=== PATIENT | female | born 1945 | race Caucasian/White ===

== ENCOUNTER → 2016-08-07 | Outpatient (CLI) | payer OTHER, MEDICARE ==
[~2016-08-07] VITALS: Ht 160 cm; Wt 61.7 kg
[~2016-08-07] MED LIST: APAP650 PO; ARAVA20 MG PO; ATENOLOL 50MG T50 M1 PO; BENICAR20 MG PO; CALCIUM 500 +1 EAC5 PO; CENTRUM SILVER1 EAC4 PO; COLACE100 MG PO; ENBREL 25 MG KI25 M1 SUBQ; ENDOCET 7.5-321 EACH PO; FOSAMAX 70 MG T70 MG PO; HYDROCORTISONE PO; K-DUR 20 MEQ T20 MEQ PO; KLOR-CON 1010 MEQ PO; MEDROLDOSEPACK PO; MULTIVITAMINS PO; NORVASC 5 MG TAB5 MG PO; NORVASC10 MG PO; OXYCONTIN10 M1 PO; PERCOCET 10-321 EACH PO; PREDNISONE 5 MG5 M1 PO; ROBAXIN 750 MG750 M1 PO; TRAZODONE HCL50 MG PO; TRIAMTERENE-HC1 EAC1 PO; VISTARIL 25 MG25 M1 PO; VITAMIN D31000 UNI2 PO; ZOCOR 20 MG TAB20 M1 PO
--- NOTE | ~2016-08-07 | HPC ---
[facility] [place] [address] PAIN MANAGEMENT CONSULTATION Name: ANN CHEN Room #: REG [facility] Tamiko#: [id number] Admission: 08/07/16 Attend Phys: Ming Arnett MD Discharge: Date of : 41 Report #: [id number] THIS REPORT FOR: //name// CC: GARY Arnett DATE OF SERVICE: 08/07/2016 DATE OF SERVICE: 08/07/2016 Follow up visit for lumbar radiculopathy, bilateral status post lumbar fusion with decompression. This is a followup visit for the patient, who is here today with her . She has persistent and recurring low back pain radiating mostly into the right buttock and thigh. She has had improvement following epidural injections most recently performed in May. She reports 60% improvement. Duration of response; however, was limited to about 2 months or so when the pain began to return. She is here today with pain at level of 8 or 9, it is worse with weightbearing. Pain once again across the low back and into the legs. She describes it as an aching ____ sensation is exacerbated by walking. It is typically worse in the morning. Medications for pain include acetaminophen and trazodone. She is reluctant to take stronger medications due to the side effects. PHYSICAL EXAMINATION: She is a ernesto 70-year-old pleasant, alert and oriented. Blood pressure 150/70, heart rate 56. BMI is 24.1. She moves from a sitting to standing position, ambulates independently without a walking device. She has pain and tenderness across her low back. She has a scar from previous surgery. She has pain with forward flexion and extension and straight leg raising reproduces pain, particularly in the right buttock and thigh. This involves the L3-L4 distribution. IMPRESSION: Low back pain, post-laminectomy syndrome with radiculopathy. Pain is worse on the right than the left. PLAN: Epidural steroid injection today above the level of her fusion. We have also discussed other options for the future consideration including the possibility of a spinal cord stimulator. We had a long discussion about that at last visit. We reviewed some of the issues today and further questions were answered. She is not quite ready for that therapy, but knows that this is an option going forward in the future. PROCEDURE: She was taken to fluoroscopic suite, placed prone, skin prepped with [address] [address] PAIN MANAGEMENT CONSULTATION Name: ANN CHEN Room #: REG [facility] Tamiko#: [id number] Admission: 08/07/16 Attend Phys: Ming Arnett MD Discharge: Date of : 43 Report #: [id number] ChloraPrep. Skin was anesthetized over the L3-L4 interspace just above her fusion. Skin was anesthetized and a #20-gauge Tuohy epidural needle advanced in the epidural space in the midline. There was no blood nor CSF aspirated. 1 mL of Omnipaque demonstrated an excellent spread of dye into the epidural space followed by 3 mL of 0.5% lidocaine mixed with 80 mg of triamcinolone. She tolerated the procedure well and was walking to recovery room at time of dictation and is in good condition. Followup visit is planned on an as needed basis. We will see here for injections intermittently. We did review the fact that she is on hydrocodone as a replacement for adrenal insufficiency. Long-term consequences of steroid use were reviewed today. By: 1133 1400 Ming Arnett MD /nt
[2016-08-07 10:17] VITALS: BP 155/66
== END ==
LOC: PAIN 06-11 14:33
DX: M54.16 Radiculopathy, lumbar region (principal); M96.1 Postlaminectomy syndrome, not elsewhere classified; I10 Essential (primary) hypertension; F10.21 Alcohol dependence, in remission; D64.9 Anemia, unspecified

== ENCOUNTER → 2016-09-18 | Outpatient (CLI) | payer OTHER, MEDICARE ==
[~2016-09-18] VITALS: Ht 160 cm; Wt 61.6 kg
[~2016-09-18] MED LIST changes: +NORCO 5-325 TA1 EACH PO; +PREDNISONE 20 M20 MG PO
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
[2016-09-18 10:26] VITALS: BP 161/83
== END | disposition home or self-care (01) ==
LOC: PAIN 07:03
DX: M54.16 Radiculopathy, lumbar region (principal); M96.1 Postlaminectomy syndrome, not elsewhere classified; G89.29 Other chronic pain

== ENCOUNTER → 2016-11-03 | Outpatient (CLI) | payer OTHER, MEDICARE ==
[~2016-11-03] VITALS: Ht 160 cm; Wt 62.4 kg
[~2016-11-03] MED LIST changes: +ALIGN4 MG PO; +GABAPENTIN100 MG PO; +OXYCODONE HCL 55 MG PO; +OXYCODONE HCL5 M1 PO; +OXYCONTIN15 MG PO; +PERCOCET PO; +PROLIA60 MG/1 ML SQ; +ZANTAC 150MG T150 MG PO
--- NOTE | ~2016-11-03 | HPC ---
[address] [address] PAIN MANAGEMENT CONSULTATION Name: ANN CHEN Room #: REG [facility] Morrison#: [id number] Admission: 11/03/16 Attend Phys: Ming Arnett MD Discharge: Date of : 43 Report #: [id number] THIS REPORT FOR: //name// CC: GARY Arnett DATE OF SERVICE: 11/03/2016 Followup visit for intractable low back pain radiating into the left buttock and left leg. Note this dictation replaces the earlier dictation performed on 11/03/2016 which was distorted on the Dictaphone. The patient returns to pain clinic today with her to discuss her low back pain and radiating radicular symptoms. Her pain is described as a chronic, sharp, shooting, aching tenderness 4/10, it is worse with standing and walking, getting up and down from a chair. The pain radiates throughout the left leg in a radicular fashion and she has had some intermittent improvement with epidural injections with varying degrees of duration. The patient has large disk fragment lying posterior to the right vertebral body. There are advanced degenerative changes at L3-L4 and the L3 fragment is an upward herniation of L3-L4 off the disk rather than the downward herniation of the L2-L3 disk. There is a large ridge there across the anterior canal. She has an L5-S1 disk prosthesis. There is evidence for loosening of the L5 screws. There is a grade 1 anterolisthesis of L5 and S1, which is unchanged. Her surgery was performed initially in March of 2013 followed by repair of hardware installed on March 15, very shortly thereafter in April of 2013. The patient had epidural injections in 2016 and 2015. A series of injections were performed over 6 months between March and August and fourth injection performed roughly 7 months after the first injection. While helpful, these provided only short duration of relief. MEDICATIONS: Arava for rheumatoid arthritis, osteopenia, Fosamax, atenolol, amlodipine, hydrocortisone, simvastatin, trazodone, Centrum Silver, vitamin D. ALLERGIES: The patient is allergic to CIMZIA and CODEINE. PHYSICAL EXAMINATION: She is a very ernesto 71-year-old pleasant, alert and oriented. Blood pressure 167/72, heart rate 65, respirations 16. BMI is 24.5. She moves from sitting to standing position, ambulates with mild antalgic features. She has some weakness noted in the lower extremities. Straight leg raising on the left follows an L3 distribution which is consistent with the findings that we see on her MRI with the disk fragment lying posterior [place] [address] PAIN MANAGEMENT CONSULTATION Name: ANN CHEN Room #: REG [facility]#: [id number] Admission: 11/03/16 Attend Phys: Ming Arnett MD Discharge: Date of : 43 Report #: [id number] vertebral body. Sensation is intact. IMPRESSION: 1. Chronic intractable low back pain with radiculopathy. 2. Post-laminectomy syndrome with fusion. 3. Rheumatoid arthritis. 4. Adrenal insufficiency. 5. Hypertension. 6. Osteopenia. RECOMMENDATIONS: While surgery and repeat surgery is certainly a potential option, we also discussed spinal cord stimulation. Her came to the clinic today armed with 17 questions. I answered all of them. with possibilities for success, risks, failures, management and other practical aspects of spinal cord stimulation therapy. They understand that a trial is indicated and that Medicare will require preauthorizing evaluation by psychologist. We have given numbers for them to call to arrange for this with Dr. Zavaleta. Plan is to proceed with spinal cord stimulation trial after we have accomplished all of the preauthorizing paperwork and we will see the patient back towards the end of October for the procedure. By: [id number] Ming Arnett MD /nt
[2016-11-03 09:36] VITALS: BP 167/72
== END | disposition home or self-care (01) ==
LOC: PAIN 06:06
DX: M54.16 Radiculopathy, lumbar region (principal); G89.29 Other chronic pain; M06.9 Rheumatoid arthritis, unspecified; M96.1 Postlaminectomy syndrome, not elsewhere classified; E27.40 Unspecified adrenocortical insufficiency; I10 Essential (primary) hypertension; M85.80 Other specified disorders of bone density and structure, unspecified site; Z98.890 Other specified postprocedural states; Z88.8 Allergy status to other drugs, medicaments and biological substances; Z79.899 Other long term (current) drug therapy

== ENCOUNTER → 2016-11-12 | Outpatient (CLI) | payer OTHER, MEDICARE ==
[~2016-11-12] VITALS: Ht 160 cm; Wt 63.4 kg
--- NOTE | ~2016-11-12 | HPC ---
[facility] [place] [address] PAIN MANAGEMENT CONSULTATION Name: ANN CHEN Room #: REG [facility] Morrison#: [id number] Admission: 11/12/16 Attend Phys: Ming Arnett MD Discharge: Date of : 41 Report #: [id number] THIS REPORT FOR: //name// CC: Dr. Tad Arnett DATE OF SERVICE: 11/12/2016 DATE OF REGISTRATION: 11/12/2016 Followup visit for chronic intractable pain with severe low back pain, herniated nucleus pulposus, and radiculopathy. The patient returns to pain clinic today with her . They were just in the office for an extended visit 1 week ago. We discussed spinal cord stimulation, surgical options and treatments with medication. They decided they would like for our clinic to manage her medication under terms of an opioid agreement. She is here today to establish that. She has currently been using oxycodone 5-10 mg twice a day, more recently is 10 mg taken morning and afternoon. She generally does not eat in the evening after 8 when she goes to bed, but wakes up in the morning with substantial degree of pain. She is not on any coanalgesics including medications for neuropathic pain and we discussed the rationale for them at this time. CURRENT MEDICATIONS: Arava, Fosamax, atenolol, amlodipine, hydrocortisone, simvastatin, trazodone, vitamins. ALLERGIES: CODEINE, CIMZIA. PHYSICAL EXAMINATION: The patient is pleasant, a little frustrated by her ongoing pain. Blood pressure 137/61, heart rate 60, respirations 16. She has ongoing pain across the low back with radiation into the anterolateral thigh consistent with an L3 radiculopathy on the left. IMPRESSION: 1. Low back pain with large disk fragment posterior to the right L3 vertebral body with degenerative changes. radiculopathy. 2. Management of high risk medications, now under terms of an opioid agreement. 3. Rheumatoid arthritis. PLAN: 1. I have initiated long-acting opioid with OxyContin 15 mg b.i.d. and I renewed her prescription for oxycodone 5 one to two tablets q. 6 hours or up to [address] [address] PAIN MANAGEMENT CONSULTATION Name: ANN CHEN Room #: REG [facility] Morrison#: [id number] Admission: 11/12/16 Attend Phys: Ming Arnett MD Discharge: Date of : 41 Report #: [id number] 4 tablets a day if she takes 2 at a time morning and evening, 120 tablets were provided. 2. Begin gabapentin with a titrating dose of 100 mg at bedtime towards 300 mg t.i.d. Side effects, benefits and risks were reviewed. Written titration instructions provided. 3. The patient will follow up with Dr. Mishra for an appointment to discuss surgical options. 4. The patient is pursuing spinal cord stimulation therapy as well and has appointment with Dr. Fani Zavaleta to determine her to complete that part of the Medicare requirement. 5. Follow up in the pain clinic in 2 weeks. By: [id number] Ming Arnett MD /nt
[2016-11-12 12:41] VITALS: BP 137/61
== END ==
LOC: PAIN 06:49
DX: M54.16 Radiculopathy, lumbar region (principal); M06.9 Rheumatoid arthritis, unspecified; I10 Essential (primary) hypertension; F10.21 Alcohol dependence, in remission

== ENCOUNTER → 2016-11-24 | Outpatient (CLI) | payer OTHER, MEDICARE ==
[~2016-11-24] VITALS: Ht 160 cm; Wt 64.4 kg
[~2016-11-24] MED LIST changes: +HYDROCHLOROTHIA25 M2 PO; +NEURONTIN300 MG PO
--- NOTE | ~2016-11-24 | HPC ---
[facility] [address] [place] [address] PAIN MANAGEMENT CONSULTATION Name: ANN CHEN Room #: REG [facility] Morrison#: [id number] Admission: 11/24/16 Attend Phys: Ming Arnett MD Discharge: Date of : 41 Report #: [id number] THIS REPORT FOR: //name// CC: GARY Arnett DATE OF SERVICE: 11/24/2016 Followup visit for chronic low back pain with radiculopathy. The patient returns to pain clinic today with her with another long visit to ask questions about spinal cord stimulation and also to give me a very, very thorough feedback on her response to gabapentin increasing dose, OxyContin 50 mg b.i.d. and breakthrough. She has done well. Her pain score overall is about 40% better and she denies any significant side effects. She sleeps well at night. She has figured out a way of getting up first thing in the morning and taking her medication before she gets out of bed, going back to bed and then getting up for the day about an hour later. This has helped a lot. She saw Dr. Mishra at who dissuaded her from back surgery even though she has a large disk fragment. She is considering, however, going forward with her spinal cord stimulator trial. At several visits, we have talked about Nevro and the high-frequency benefits. Our group has now given more consideration to [employer] for a number of reasons. There have been lots of discussions amongst our compatriots about which device is best. I think that still remains to be seen, but we are choosing [employer] at this time because of some recent evidence presented at a national conference. It suggests that stimulation without paresthesia can be achieved at somewhere between 700 to 1200 Hz capable of the [employer] numerical control programmer. There is some programming advantage with [employer] that is not seen in other devices. There newer batteries and leads are also MRI safe, so that would be an additional advantage. The need to charge the device less frequently is also a convenience for patients should they do well. We plan to go forward with the [employer] trial in the near future. We will have , our process controller, find a time on the schedule for the trial to take place sometime in the next week or two. By: 1706 0000 Ming Arnett MD /nt
[2016-11-24 15:05] VITALS: BP 155/67
== END | disposition home or self-care (01) ==
LOC: PAIN 06:58
DX: M54.16 Radiculopathy, lumbar region (principal); G89.29 Other chronic pain; F11.20 Opioid dependence, uncomplicated; Z88.8 Allergy status to other drugs, medicaments and biological substances; Z98.890 Other specified postprocedural states

== ENCOUNTER → 2017-01-01 | Outpatient (CLI) | payer OTHER, MEDICARE ==
[~2017-01-01] VITALS: Ht 160 cm; Wt 63.0 kg
--- NOTE | ~2017-01-01 | HPC ---
[facility] [place] [address] PAIN MANAGEMENT CONSULTATION Name: ANN CHEN Room #: REG [facility] Morrison#: [id number] Admission: 01/01/17 Attend Phys: Ming Arnett MD Discharge: Date of : 43 Report #: [id number] THIS REPORT FOR: //name// CC: GARY Arnett DATE OF SERVICE: 01/01/2017 Followup visit for chronic low back pain with radiculopathy. After multiple discussions, the patient is here today for her spinal cord stimulation trial. We have completed all the preauthorizations. She has had her psychological evaluation, which was acceptable. She continues to report pain levels in the range of 7 to 8, radiating into the left leg. We have discussed the procedure once again today, risks of the procedure and benefits and she is prepared to proceed. IMPRESSION: Low back pain with radiculopathy, left L4-L5. PROCEDURE: Implant, dual [employer] Infinion 16 trial leads under fluoroscopic guidance. After an IV was placed and the patient was given 2 g of intravenous Ancef, she was taken to the fluoroscopic suite, placed prone. Skin was prepped widely with ChloraPrep. Sterile drapes were placed. We began on the left. The skin was anesthetized below the T12-L1 interspace. A 14-gauge Tuohy-type epidural needle was advanced into the epidural space, midline under first attempt. The first Infinion lead was advanced with the tip resting at the superior edge of T6 covering T6, T7 and T8. AP and lateral views confirmed good location. There were no paresthesias during the lead placement. The skin was then anesthetized to the right of midline and the second needle was advanced into the same interspace without difficulty. Second lead was advanced nicely into the epidural space, again covering the same location. However, this lead was slightly to the right of first. Each lead was separately trialed by access services representative, Anastasia Hdz of the [email or web address]. We agreed the leads appeared to be in good location for coverage of low back and the left leg. The needles were then carefully removed as well as the stylet. Skin was prepped with Mastisol and Steri-Strips were applied to secure the leads into place. Sterile dressing was applied. The patient was then taken from the procedure suite to the recovery area. She tolerated the procedure very well. There were no complications. Programming was performed with [place] [address] PAIN MANAGEMENT CONSULTATION Name: ANN CHEN Room #: REG [facility] Tamiko#: [id number] Admission: 01/01/17 Attend Phys: Ming Arnett MD Discharge: Date of : 43 Report #: [id number] by Ms. Hdz. We will follow by phone over the course of the trial and see her back in 1 week. By: 01 2047 MD benedict Arndt
[2017-01-01 07:49] VITALS: BP 127/63
== END | disposition home or self-care (01) ==
LOC: PAIN 06:53
DX: M54.16 Radiculopathy, lumbar region (principal); G89.29 Other chronic pain; D64.9 Anemia, unspecified; Z79.899 Other long term (current) drug therapy; Z88.8 Allergy status to other drugs, medicaments and biological substances; Z98.890 Other specified postprocedural states

== ENCOUNTER → 2017-01-08 | Outpatient (CLI) | payer OTHER, MEDICARE ==
[~2017-01-08] VITALS: Ht 160 cm; Wt 64.4 kg
[~2017-01-08] MED LIST changes: +ROXICODONE5 M2 PO
--- NOTE | ~2017-01-08 | HPC ---
[facility] [address] [address] PAIN MANAGEMENT CONSULTATION Name: ANN CHEN Room #: REG [facility] Morrison#: [id number] Admission: 01/08/17 Attend Phys: Ming Arnett MD Discharge: Date of : 41 Report #: [id number] THIS REPORT FOR: //name// CC: GARY Arnett [place] Dr. Jimenes DATE OF SERVICE: 01/08/2017 DATE OF REGISTRATION: 01/08/2017 Followup visit for chronic back pain, post-laminectomy and fusion. The patient returns to pain clinic today with her . She provided me with a 10 page incredibly detailed report regarding her response to various programs, stimulation levels activity and pain scores during her spinal cord stimulation trial. I did review most of this while they were in the office and later all of it. It is their assessment that stimulation trial was successful at least to the stage of going forward with permanent implant. She did have some improvement, but did not like the paresthesia. When the paresthesia was diminished by increasing the frequency up to 700 ____ 1200, she felt that it was insufficient. They asked question about may be trialing another device, but I do not think that that is linder, I think that the device trials are similar and although there are some variations between Nevro, [employer], [employer], I do not think that the differences are enough to warrant another trial, I think she has failed spinal cord stimulation. We discussed briefly intrathecal therapies. This is something that they did not want at this time, may consider in the future. We discussed medication management and that seemed to be the route to go today. She is currently on OxyContin, which provides relief and few side effects. I have recommended that we continue that along with gabapentin and will follow up in 2 months. PHYSICAL EXAMINATION: Pleasant, alert and oriented, shows a little bit of hesitancy in her speech. She moves easily from sitting to standing position, walks with antalgic features after she has been up for a bit and scores her pain in ever increasing number. Pain radiates in the left leg. She has mild scoliosis noted. IMPRESSION: 1. Chronic low back pain with radiculopathy, left L4-L5. Post-laminectomy syndrome. [address] [address] PAIN MANAGEMENT CONSULTATION Name: ANN CHEN Room #: REG [facility] Tamiko#: [id number] Admission: 01/08/17 Attend Phys: Ming Arnett MD Discharge: Date of : 41 Report #: [id number] 2. Failed [employer] spinal cord stimulation trial. We will not move forward with the implant based upon this trial. By: 1501 1521 Ming Arnett MD /nt
[2017-01-08 10:49] VITALS: BP 137/69
== END ==
LOC: PAIN 06:51
DX: M54.16 Radiculopathy, lumbar region (principal)

== ENCOUNTER → 2017-03-09 | Outpatient (CLI) | payer OTHER, MEDICARE ==
[~2017-03-09] VITALS: Ht 160 cm; Wt 63.5 kg
--- NOTE | ~2017-03-09 | HPC ---
[facility] [place] [address] PAIN MANAGEMENT CONSULTATION Name: TESSIE CHENEldon Viveros Room #: REG KYAW Morrison#: [id number] Admission: 03/09/17 Attend Phys: Ming Arnett MD Discharge: Date of : 41 Report #: [id number] THIS REPORT FOR: //name// CC: GARY Arnett DATE OF SERVICE: 03/09/2017 Thirty five-minute followup visit for pain counseling and medication management. The patient is in the clinic today with her . He has provided me again with an extensive typed assessment of patient's response to medication over the course of the last several weeks. She is currently on an opioid baseline medication with breakthrough and is also using co-analgesic gabapentin 300 mg t.i.d. Her daily dose of OxyContin is currently 15 mg b.i.d. and oxycodone is 5-10 mg for breakthrough pain, also being used in anticipation of events. Mr. Chen's very thorough assessment describes good days and bad days. She had one excellent day when she was able to walk around [place], shopping for an extended period. She cannot really identify why that was such a good day. She did nothing out of the ordinary. She took her medication in anticipation of her trip. Other days the pain is so severe when ambulating that she has to sit down. Pain has remained fairly consistent in its location with lumbar radiculopathy, extending into the left L4-L5 distribution of the leg. She is tearful today in discussing her pain. Her asked me about behavioral therapies and we also discussed spinal cord stimulation again. The trial was only so-so. It was my opinion that if we decided to go forward with spinal cord stimulation given the fact that there are many additional programs that were not trialed during her 5-day trial that her likelihood of success would be in the range of 30%. This is my estimate. For now the use of spinal cord stimulation remains stable. There were some questions again about the possibility of a different stimulator, either [employer], [employer] or [employer]. She had a [employer] trial. We talked about methadone as a long-acting opioid. We have had good success in treating many of our patients who have neuropathic pain with methadone. It can be used safely I believe as long as she uses it carefully and under strict instructions from a physician with good patient education. We will leave that as an option in the future. We have talked some about current accepted norms for the use of opioid therapy. An increase in her breakthrough medication I think is a reasonable titration at this point in time and we will be pushing up against the CDC guideline of 90 morphine milligram equivalents. In addition to the additional oxycodone for breakthrough, we can also consider increasing her gabapentin and I have recommended that she gradually increase from 300 three times daily to [address] [address] PAIN MANAGEMENT CONSULTATION Name: ANN CHEN Room #: REG KYAW Morrison#: [id number] Admission: 03/09/17 Attend Phys: Ming Arnett MD Discharge: Date of : 41 Report #: [id number] times daily. Higher doses of course may be effective without substantial side effects for patients with neuropathic pain. PHYSICAL EXAMINATION: GENERAL: Her affect is depressed and tearful. She does not appear overmedicated at all. VITAL SIGNS: Her blood pressure is 133/69, her heart rate is 59, respirations are 16. BMI is 24.8. MUSCULOSKELETAL: She continues to have pain in her left low back, buttock and left leg with movement and positive straight leg raising. IMPRESSION: 1. Persistent chronic low back pain with radiculopathy, post-laminectomy syndrome. 2. Situational depression related to chronic pain. 3. Management of high risk medication. RECOMMENDATION: Medications were provided for OxyContin 15 mg b.i.d.; oxycodone 5-15 mg breakthrough q.4 hours, not to exceed 6 tablets a day, 180 tablets given; gabapentin 180 tablets given of the 300 mg strength to take up to 2 tablets 3 times daily as directed. I also provided them with information on positive attitudes for chronic intractable pain and cognitive behavioral therapies. 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 We talked about the importance of positive attitudes and we will continue to follow these themes. We talked a little bit about programs providing psychological pain management including the [facility]. She may be a candidate for that, but [facility] often time focuses on taking patients off of opioid and they need to be prepared for that focus. I would be in favor of that of course if it were helpful in allowing her to do so. We will discuss further at next visit. By: [id number] Ming Arnett MD /nt
[2017-03-09 10:12] VITALS: BP 133/69
== END | disposition home or self-care (01) ==
LOC: PAIN 06:57
DX: M96.1 Postlaminectomy syndrome, not elsewhere classified (principal); G89.29 Other chronic pain

== ENCOUNTER → 2017-05-29 | Outpatient (CLI) | payer OTHER, MEDICARE ==
[~2017-05-29] VITALS: Ht 160 cm; Wt 62.6 kg
[~2017-05-29] MED LIST changes: +ARAVA10 MG PO; +ATENOLOL 50MG T50 MG PO; +KEFLEX500 M1 PO; +LEFLUNOMIDE 1010 MG PO; +MIRALAX17 GM PO; +NEURONTIN 300300 M1 PO; +NEURONTIN600 MG PO; +RELISTOR150 MG PO
--- NOTE | ~2017-05-29 | HPC ---
[facility] [place] [address] [place] [address] PAIN MANAGEMENT CONSULTATION Name: ANN CHEN Room #: REG KYAW Morrison#: [id number] Admission: 05/29/17 Attend Phys: Wilber Vazquez MD Discharge: Date of : 43 Report #: [id number] THIS REPORT FOR: //name// CC: GARY Vazquez DATE OF SERVICE: 05/29/2017 FOLLOWUP HISTORY OF PRESENT ILLNESS: The patient is a 72-year-old female who has been seen and followed in the pain clinic by Dr. Ming Arnett. She has history of lumbar radicular pain and post-laminectomy syndrome. She has returned to the pain clinic today for evaluation. She has continued to have pain, which radiates down into her left buttocks down into the left leg and is here for medication evaluation. She rates her pain as a 3/10 at this juncture. Pain worsens with walking, standing and notes some problems when she gets up from a sitting position. She is experiencing some shooting, sharp, aching pain in her leg. She finds that opioid medications helped to alleviate her chronic pain. She feels that the OxyContin 15 mg b.i.d. and oxycodone 5 mg continues to be helpful. She has discussed the opioid changes as a result of the opioid crisis. States that she has taken her medications as prescribed. She is keeping them in a controlled environment. She has had no problems with them. She is aware of the possibility of dependence and tolerance. She finds that these medications enable her to continue to be more active. ALLERGIES: CODEINE AND CIMZIA. CURRENT MEDICATIONS: MiraLax 17 grams, atenolol 50 mg total of 75 mg daily, gabapentin 100 mg tablets t.i.d., OxyContin 15 mg b.i.d., oxycodone 5 mg tablets every 6 hours p.r.n., one to three tablets per day for breakthrough pain, Arava 20 mg, Prolia subcutaneous monthly, calcium, multivitamin, Centrum, trazodone 50 mg at bedtime, hydrocodone, hydrocortisone 10 mg b.i.d., Zocor 20 mg. PHYSICAL EXAMINATION: Unremarkable. The patient's speech and insight appear normal. VITAL SIGNS: Blood pressure 171/60, pulse 60, respiratory rate 16, room air saturation 97. Height 5 foot 3, weight 138 pounds, BMI is 24. The patient has not fallen in the last 3 months. Walks with a mild antalgic gait. HEART: Regular rate. ABDOMEN: Nontender, complains of pain and discomfort in the lower portion of her back with pain radiating down to the left buttocks involving the left leg with sharp, shooting, aching pain and tenderness with certain activities. Pain exacerbated by walking and standing. IMPRESSION: [facility] [address] [place] [address] PAIN MANAGEMENT CONSULTATION Name: ANN CHEN Room #: REG KYAW Morrison#: [id number] Admission: 05/29/17 Attend Phys: Wilber Vazquez MD Discharge: Date of : 43 Report #: [id number] 1. Low back pain with radiculopathy, post-laminectomy syndrome with pain in the left lower back and buttocks area. 2. Manage of high risk medications. 3. Situational depression. 4. Hypercholesterolemia. RECOMMENDATIONS: We discussed treatment options with the patient. At this juncture, she feels that her medications are working reasonably well. She is able to engage in activity she would not be able to without their use. She is keeping her medications in a guarded location. She does not feel that she is having any signs of dependence or tolerance at this juncture. We will continue with her current medical regimen. She will follow up with Dr. Arnett in the near future. We would like to thank you for letting us participate in her care. A prescription for gabapentin 100 mg t.i.d. total of 180, OxyContin 15 mg 1 p.o. b.i.d., total of 60 have been written. The patient will follow up and call us if she has any concerns. <ELECTRONICALLY SIGNED> By: Wilber Vazquez MD 06/10/17 0837 0821 1211 Wilber Vazquez MD /ANKIT
[2017-05-29 10:49] VITALS: BP 171/60
== END ==
LOC: PAIN 07:11
DX: M54.16 Radiculopathy, lumbar region (principal); M96.1 Postlaminectomy syndrome, not elsewhere classified; F32.9 Major depressive disorder, single episode, unspecified; E78.00 Pure hypercholesterolemia, unspecified; Z79.899 Other long term (current) drug therapy

== ENCOUNTER → 2017-07-02 | Outpatient (CLI) | payer OTHER, MEDICARE ==
[~2017-07-02] VITALS: Ht 238.8 cm; Wt 62.7 kg
--- NOTE | ~2017-07-02 | HPC ---
[facility] [place] [address] PAIN MANAGEMENT CONSULTATION Name: ANN CHEN Room #: REG KYAW Morrison#: [id number] Admission: 07/02/17 Attend Phys: Ming Arnett MD Discharge: Date of : 41 Report #: [id number] THIS REPORT FOR: //name// CC: GARY Arnett DATE OF SERVICE: 07/02/2017 Followup visit for chronic low back pain with radiculopathy. This is a 20-minute followup visit for the patient to discuss treatment of her ongoing low back pain with radicular symptoms. I am pleased to report that she has made good progress with a simple exercise program. By simply walking every day she has been able to increase her endurance, her standing ability and her weightbearing. She does walking with her , often times doing it outdoors, which I have recommended. [facility]. Overall, she is pleased with this and feels that her pain has moderated some as well. She is seeing improvement therefore not only in pain control, but in function. She would like a physical therapy appointment to further extend her exercise and I am agreed to do so and that was written for today, 2 visits per week for 4 weeks and we will reassess after that. We discussed medication management at some length. I went in great detail over her oxycodone use and Neurontin titration. She is now roughly at 1500 mg of Neurontin per day taken in divided dose. OxyContin is provided for baseline pain control with an opioid 15 mg b.i.d. and she uses oxycodone 5/325 for breakthrough, no more than 5 tablets per day. She is on a written opioid agreement. She has completed an ORT and is at low risk. Functional assessment tool is being followed to see for improvements and she has goals of continuing to see better pain control with few side effects, improving her day-to-day activities of living including walking, weightbearing activities. PQRS review shows no history of osteoarthritis other than the lumbar spondylosis. Her BMI is 21. Vital signs are blood pressure 138/70, heart rate 59, respirations 16, O2 sat 97%. At worst her pain intensity is a 6/10, average pain score is 5/10, tolerable for her. She is not a fall risk. She does not use a walker. She has history of hypertension, which has been under treatment. Opioids have been discussed above and she is on an opioid written agreement. We have discussed CDC guidelines again today. I have calculated her morphine milligram equivalency. Her current MME is 60-70 depending on use of breakthrough medicine. The only side effects that she has with medications that are poorly managed are gabapentin related headache, dizziness and tremor. We have discussed a trial of Gralise and samples were provided. She will call our office to let us know if this is effective. [address] [address] PAIN MANAGEMENT CONSULTATION Name: ANN CHEN Room #: REG KYAW Morrison#: [id number] Admission: 07/02/17 Attend Phys: Ming Arnett MD Discharge: Date of : 43 Report #: [id number] PHYSICAL EXAMINATION: She is pleasant, alert and oriented, without signs of overmedication. She has tenderness across her low back. She stands and walks with a good stable gait. She has some radicular features in the left leg with straight leg raising. IMPRESSION: 1. Chronic low back pain, post-laminectomy syndrome with radiculopathy, left lower extremity. 2. Management of high risk medications. 3. Situational depression, improved. 4. Hypertension. PLAN: Medications renewed for 3 months including OxyContin 15 mg b.i.d., oxycodone 5 mg no more than 5 tablets a day for breakthrough pain and Gralise samples provided. Neurontin is provided at a dose of 300-500 mg t.i.d. as tolerated and a followup visit scheduled for 3 months. Prescription written for physical therapy. <ELECTRONICALLY SIGNED> By: Ming Arnett MD 07/29/17 1640 1218 194 Ming Arnett MD /nt
[2017-07-02 09:59] VITALS: BP 138/70
== END ==
LOC: PAIN 06:44
DX: M54.16 Radiculopathy, lumbar region (principal); M96.1 Postlaminectomy syndrome, not elsewhere classified; I10 Essential (primary) hypertension; F32.9 Major depressive disorder, single episode, unspecified; Z79.899 Other long term (current) drug therapy

== ENCOUNTER → 2017-08-13 | Outpatient (CLI) | payer OTHER, MEDICARE ==
[~2017-08-13] VITALS: Ht 160 cm; Wt 62.5 kg
[~2017-08-13] MED LIST changes: -KEFLEX500 M1 PO; -RELISTOR150 MG PO
--- NOTE | ~2017-08-13 | HPC ---
[facility] [address] [place] [address] PAIN MANAGEMENT CONSULTATION Name: ANN CHEN Room #: REG KYAW Morrison#: [id number] Admission: 08/13/17 Attend Phys: Ming Arnett MD Discharge: Date of : 43 Report #: [id number] THIS REPORT FOR: //name// CC: GARY Arnett DATE OF SERVICE: 08/13/2017 Followup visit for chronic low back pain with radiculopathy. I spent another 20-minute consultation with patient and her . Many questions about gabapentin. We were unable to get authorization for Gralise at an affordable hernandez. Unfortunately, it worked very well for her. She continues on oxycodone in combination with her gabapentin and is tolerating this combination well. She has minimal side effects and she and her have been able to resume some activities, which is encouraging. She has been walking a bit more and tolerating her pain more effectively down to an intensity of 5/10. Medications were reviewed and reconciled. She currently is on 1800 mg of gabapentin and we have agreed today that we will go up on that dose. Her is quite precise and has asked to use 100 and 300 mg capsules in order to adjust her dose to the most favorable interval and daily dose. We have agreed on 25/100 as a target. I have given her 300 and 100 mg capsules amounting to roughly that dose per month and he will combine them to provide roughly 500 mg 5 times daily or 400 daily. He is looking to find the best possible dose with this combination. She has no significant side effects from her medication and oxycodone is well tolerated without much side effect other than some constipation. We reviewed treatments for opioid-induced constipation. Her PQRS review once again shows no history of osteoarthritis, just the back problems. Her BMI is 24.4. Her pain intensity is 5/10. Her blood pressure 152/67, heart rate is 56, O2 sat 96%. She is not a fall risk, does not use a walker or a cane. She is on no blood thinner, but does have a history of hypertension, which has been under treatment in the past. She has signed an opioid agreement. We have rereviewed her dose, which is currently at roughly 85 morphine milligram equivalents per day. She uses oxycodone 5 mg 5 times a day for a dose of 25 in addition to OxyContin 15 mg b.i.d. for an additional 30. That correlates to 55 mg of oxycodone per day. I had previously calculated her dose of 60 to 70. It is a bit higher than that. She shows no evidence of addiction, although is quite dependent on the [address] [address] PAIN MANAGEMENT CONSULTATION Name: ANN CHEN Room #: REG KYAW Morrison#: [id number] Admission: 08/13/17 Attend Phys: Ming Arnett MD Discharge: Date of : 43 Report #: [id number] medication for pain control. IMPRESSION: 1. Chronic back pain with radiculopathy, left lower extremity. 2. Management of high risk medication. 3. Situational depression, improved. 4. Hypertension. PLAN: Medications renewed for 3-month interval and I plan to see her back in the Pain Clinic at that time. <ELECTRONICALLY SIGNED> By: Ming Arnett MD 09/07/17 1408 1315 0058 Ming Arnett MD /nt
[2017-08-13 11:30] VITALS: BP 152/67
== END ==
LOC: PAIN 07:01
DX: G89.29 Other chronic pain (principal); M54.5 Low back pain; M54.16 Radiculopathy, lumbar region; I10 Essential (primary) hypertension; M79.662 Pain in left lower leg; F43.21 Adjustment disorder with depressed mood; Z79.899 Other long term (current) drug therapy

== ENCOUNTER → 2017-11-02 | Outpatient (CLI) | payer OTHER, MEDICARE ==
[~2017-11-02] VITALS: Ht 160 cm; Wt 61.0 kg
--- NOTE | ~2017-11-02 | HPC ---
[facility] [address] [place] [address] PAIN MANAGEMENT CONSULTATION Name: ANN CHEN Room #: REG KYAW Morrison#: [id number] Admission: 11/02/17 Attend Phys: Ming Arnett MD Discharge: Date of : 41 Report #: [id number] THIS REPORT FOR: //name// CC: GARY Burrell MD Physician staff Ming Arnett DATE OF SERVICE: 11/02/2017 HISTORY: Followup visit for chronic low back pain with radiculopathy. The patient returns to pain clinic today in followup. She and her just got back from a nice long trip. They looked mark and happy, and she told me that she was told coming off the beach that her and she were the cutest couple on the beach. They told this to me with a laugh and pride. I am pleased to see that she is remaining active. I do not feel that she would be able to do that without the medications that will be provided for her under terms of our written agreement. Her pain score today is a 4-5/10. Most of her pain is in her back and her leg. She is an ideal candidate for spinal cord stimulator, but failed a trial. Her has done some of his own research and is interested in perhaps trying one of the other device makers. Her trial was performed with [employer] system. I told him that I had just recently in fact that very morning discussed the different waveforms and possibilities provided by different devices with Dr. German Noble. Dr. Porter recently attended a meeting where she was impressed by one of the newer device makers. I have given them Dr. Noble's number for a second opinion and with the typical thoroughness that I have come to expect from the patient, I anticipate that he will seek out this consultation. CURRENT MEDICATIONS: OxyContin 15 mg b.i.d., oxycodone 5 mg 1-3 tablets taken for breakthrough pain for a total of no more than 5 tablets per day. This equals a total of 55 mg of oxycodone equaling roughly 90 morphine milligram equivalents a day. She also has gabapentin 100 mg 2 tablets 3 times daily, occasionally taking up to 8 tablets a day. She also has gabapentin 300 mg, which she takes roughly 4 times a day. They are carefully adjusting these medications as they see fit. PQRS review from 08/13 is unchanged. PHYSICAL EXAMINATION: GENERAL: She appears mark, upbeat and happy. VITAL SIGNS: Blood pressure is 156/63, heart rate 58, respirations 14, BMI [place] 23[place] [address] PAIN MANAGEMENT CONSULTATION Name: CLARK CHENQUELYEldon Viveros [facility] [id number] Admission: 11/02/17 Attend Phys: Ming Arnett MD Discharge: Date of : 43 Report #: [id number] MUSCULOSKELETAL: Pain across the low back. Mild antalgic gait. Positive straight leg raising is present into the left buttock and left leg along the L4-L5 distribution, exacerbated by walking and standing. IMPRESSION: 1. Chronic low back pain with radiculopathy, primarily on the left at this time. 2. Management of high risk medications under terms of written opioid agreement. 3. Situational depression, improved. 4. Hypertension. Followup visit is planned in 3 months in my clinic. We will see if Dr. Noble agrees that a repeat trial with another device maker is indicated. We will pursue that from reimbursement position as well. By: 1111 [id number] Ming Arnett MD /nt
[2017-11-02 10:06] VITALS: BP 156/63
== END ==
LOC: PAIN 06:51
DX: M54.16 Radiculopathy, lumbar region (principal); I10 Essential (primary) hypertension; G89.29 Other chronic pain; M54.5 Low back pain; F32.9 Major depressive disorder, single episode, unspecified; Z79.899 Other long term (current) drug therapy

== ENCOUNTER → 2018-01-18 | Outpatient (CLI) | payer OTHER, MEDICARE ==
[~2018-01-18] VITALS: Ht 160 cm; Wt 60.5 kg
[~2018-01-18] MED LIST changes: +RELISTOR150 MG PO
--- NOTE | ~2018-01-18 | HPC ---
[facility] [place] [address] [place] [address] PAIN MANAGEMENT CONSULTATION Name: ANN CHEN Room #: REG KYAW Morrison#: [id number] Admission: 01/18/18 Attend Phys: Ming Arnett MD Discharge: Date of : 41 Report #: [id number] THIS REPORT FOR: //name// CC: GARY Jimenes Physician staff Ming Arnett DATE OF SERVICE: 01/18/2018 Followup visit for chronic low back pain with radiculopathy. The patient is here today in followup for chronic pain issues. Roughly 25 minutes spent with the patient and her . She has been receiving medication for chronic low back pain and has been followed in our clinic since 2014. She has also had low back injections and spinal cord stimulator trial with [employer], which was limited. The patient describes her persistent daily pain as a chronic tolerable aching that is 3-4/10 exacerbated by walking, standing, getting up from a chair, is generally worse in the morning and worse with prolonged weightbearing. She has followed carefully a regimen of exercise recommended to help manage chronic pain. She uses her medication strictly as ordered, OxyContin 15 mg twice daily and oxycodone 5, 1-3 tablets every 4 hours for breakthrough pain as needed. She is on an opioid agreement, which has been established after completing an opioid risk tool. Her score is zero. She has shown no misuse or abuse of her medication and carefully safeguards it per terms of our agreement. With medications, she is far more functional and she is grateful for it. She is on gabapentin as well and utilizes it as a co-analgesic without significant side effects. She reports that she had pain in her left shoulder and underwent an ultrasound-guided injection at in the Rheumatology Department receiving excellent relief of pain in the shoulder, but also noting that the systemic cortisone effects provided relief of her radicular pain in her leg. She and her today asked about the possibility of injecting the low back with cortisone for similar results. Lengthy discussion about the role of epidural steroid injections and management of chronic pain ensued. I described for them Melquiades's criteria. Melquiades's criteria include: 1. Meaningful improvement following an injection. 2. Prolonged response measured in months. If she can receive that sort of improvement, I would consider epidural steroid injections as a reasonable management tool going forward. They also recognized this and despite [address] [address] PAIN MANAGEMENT CONSULTATION Name: ANN CHEN Room #: REG KYAW Morrison#: [id number] Admission: 01/18/18 Attend Phys: Ming Arnett MD Discharge: Date of : 41 Report #: [id number] recommendations for a trial of a Nevro spinal cord stimulator by Dr. Noble they have asked if they could proceed first with some additional cortisone injections. We discussed the risks and benefits of cortisone and they are aware of long-term consequences. The patient was on prednisone for a number of years because of her rheumatoid arthritis and remains on hydrocortisone supplement therapy 10 mg daily. HOME MEDICATIONS: Reviewed and reconciled. PHYSICAL EXAMINATION: She is pleasant, alert and oriented, looks to be in good shape. Blood pressure is 138/53 and heart rate 54. She is 5 feet, 3 inches, 133 pounds, BMI is 23.6. She easily moves from sitting to standing position and ambulates without antalgic features. Examination of the spine reveals some mild tenderness. There is a scar to the left of midline below the lumbosacral segment, which is nontender. There is some pain with back extension, lateral movements and rotation. Straight leg raising shows some guarding, but she denies significant discomfort. Deep tendon reflexes are absent in knees and ankles. Sensation is intact. IMPRESSION: 1. Chronic low back pain with radiculopathy. Pain is primarily on the left with some radicular features there, but she also has some mechanical features. 2. Management of high risk medications under terms of an opioid agreement. 3. Hypertension. 4. Osteoarthritis, left shoulder improved following injection. PLAN: For her return for an epidural injection next week. It has been 2014 since her last MRI and I did order another MRI to see if this might be helpful in directing our injection. I did check her medication use under the [employer] system and there are no unsuspected entries and all medications provided through our clinic. By: [id number] Ming Arnett MD /nt
[2018-01-18 10:01] VITALS: BP 138/53
== END ==
LOC: PAIN 06:57
DX: M54.16 Radiculopathy, lumbar region (principal); M19.012 Primary osteoarthritis, left shoulder; I10 Essential (primary) hypertension; G89.29 Other chronic pain; Z79.891 Long term (current) use of opiate analgesic

== ENCOUNTER → 2018-01-25 | Outpatient (CLI) | payer OTHER, MEDICARE ==
[~2018-01-25] VITALS: Ht 160 cm; Wt 60.3 kg
[~2018-01-25] MED LIST changes: +KEFLEX500 M1 PO
--- NOTE | ~2018-01-25 | HPC ---
[facility] [place] [address] [place] [address] PAIN MANAGEMENT CONSULTATION Name: ANN CHEN Room #: REG KYAW Morrison#: [id number] Admission: 01/25/18 Attend Phys: Ming Arnett MD Discharge: Date of : 41 Report #: [id number] THIS REPORT FOR: //name// CC: GARY DOWLING Physician staff Ming Arnett DATE OF SERVICE: 01/25/2018 Followup visit for chronic low back pain with radiculopathy. The patient is here today in the pain clinic with her . The 25-minute followup visit. Much discussion today about our planned injection and we elected to postpone it. She was febrile to 101.5 on Thursday and went to the Emergency Room. She was hospitalized and required IV antibiotics and remains on oral antibiotics at this time. There was some concern for bacteremia. I would just as soon not provide an injection until she is off antibiotics. A lot of discussion about medication today. We went back and forth about gabapentin. There was some recommendation for Cymbalta trial as well. Dr. Nishant Levin did an assessment for cognitive dysfunction and reviewed her medications. She scored slightly lower on a couple of his indices and Dr. Levin felt that she might do better off of gabapentin and on Cymbalta. A long discussion ensued about finding the right drug at the right dose for the right patient. We talked a lot about polypharmacy and multiple physician involvement. Ultimately, we have decided that we will taper her off of gabapentin when they return from their upcoming trip and see how she does with Cymbalta as an alternate medication. I would prefer not to add another medication to her polypharmacy regimen as it stands now. PHYSICAL EXAMINATION: Today, she is pleasant, alert and oriented without overmedication. Blood pressure is 171/68, heart rate 65, BMI is 23.6. She is not a fall risk. She moves from sitting to standing position, ambulates without difficulty. She has some pain across her low back and pain radiating into both legs, exacerbated by walking. IMPRESSION: 1. Chronic low back pain with radiculopathy, left worse than right. 2. Mechanical low back pain with spondylosis. 3. Hypertension. 4. Osteoarthritis, left shoulder. 5. Management of high risk medications under terms of written opioid agreement. All medications were reviewed and reconciled through the [facility] PDMP program. A followup visit is scheduled for her in the pain clinic [place] [address] PAIN MANAGEMENT CONSULTATION Name: ANN CHEN Room #: REG [facility].#: [id number] Admission: 01/25/18 Attend Phys: Ming Arnett MD Discharge: Date of : 41 Report #: [id number] their trip. We will continue on her gabapentin until she returns and then they can begin tapering before they come in to start on the Cymbalta and receive epidural injection. By: [id number] Ming Arnett MD /nolan
[2018-01-25 10:13] VITALS: BP 171/68
== END ==
LOC: PAIN 06:59
DX: M47.26 Other spondylosis with radiculopathy, lumbar region (principal); M19.012 Primary osteoarthritis, left shoulder; I10 Essential (primary) hypertension; G89.29 Other chronic pain; Z79.891 Long term (current) use of opiate analgesic

== ENCOUNTER → 2018-05-28 | Outpatient (CLI) | payer OTHER, MEDICARE ==
[~2018-05-28] VITALS: Ht 160 cm; Wt 55.8 kg
[~2018-05-28] MED LIST changes: +AMLODIPINE-OLM1 EAC1 PO; +BENEFIBER1 EAC1 PO; +CALCIUM 600 +1 EAC1 PO; +GABAPENTIN 100100 MG PO; +LASIX 40 MG TAB40 M2 PO; -NEURONTIN600 MG PO; +ONDANSETRON ODT4 MG PO; +PROPRANOLOL 1010 MG PO
[2018-05-28 09:35] VITALS: BP 120/56
--- NOTE | 2018-05-28 09:50 | NUR ---
Pain Clinic Assessment: 1. History of Osteoarthritis: NO History of Rheumatoid Arthritis: BACK 2. Height: 5 ft. 3 in. 160.0 cm. Weight: 123.0 lb. oz. 55.792 kg. Patient's BMI: 21.8 3. Vital Signs: BP: 120/56 Pulse: 60 Resp: 16 Temp: 02 Sat: 100 ECG Mon: 4. Pain Intensity: 4 LEFT LEG 5. Fall Risk: Dizziness: N Needs help standing or walking: N Fallen in the last 3 months: N Fall risk comments: 6. Patient on Blood Thinner: None 7. History of Hypertension: Y 8. Opioid Therapy greater than 6 weeks: Y Opiate Contract Signed: 11/12/16 9. Risk Assessment Tool Provided: 10. Functional Assessment Tool: 11. Recreational Drug Use: Never Drug Type: Tobacco Use: Never Smoker Tobacco Type: Amount or Packs/day: How Many Years: Alcohol Use: No Frequency: Quant:
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
== END ==
LOC: PAIN 05-17 00:48
DX: M54.16 Radiculopathy, lumbar region (principal); G89.29 Other chronic pain; I10 Essential (primary) hypertension; M47.897 Other spondylosis, lumbosacral region; Z79.891 Long term (current) use of opiate analgesic

== ENCOUNTER → 2018-06-17 | Outpatient (CLI) | payer OTHER, MEDICARE ==
[~2018-06-17] VITALS: Ht 160 cm; Wt 54.5 kg
[~2018-06-17] MED LIST changes: +ONDANSETRON HCL4 M2; +PROLIA60 MG/1 ML SUBQ
--- NOTE | ~2018-06-17 | HPC ---
[facility] [place] [address] PAIN MANAGEMENT CONSULTATION Name: ANN CHEN Room #: REG KYAW Morrison#: [id number] Admission: 06/17/18 Attend Phys: Ming Arnett MD Discharge: Date of : 41 Report #: [id number] THIS REPORT FOR: //name// CC: GARY Arnett DATE OF SERVICE: 06/17/2018 CHIEF COMPLAINT: Followup visit for chronic low back pain with radiculopathy. Significant degenerative spine disease. The patient returns today with her . Lengthy discussion about her last several months. She spent some time in the hospital and has been recuperating. She was on a number of antibiotics for fever of unknown origin. It was felt that these medications caused significant nausea and GI upset. This is gradually improving with use of Zantac and Zofran. Today, her pain is a 6/10. Most of her pain is in her low back in the area of her lumbar fusion. She has significant degenerative rotational scoliosis above the level of her fusion, but the pain seems to be more distal. PQRS REVIEW: Chronic history of arthritis of the lumbar spine. BMI of 21. Pain intensity 6/10. She has not fallen in the last 3 months. She does not appear to be a fall risk. She is on no blood thinner. She does have a history of hypertension, under treatment. She is on an opioid agreement which was last signed on 11/12/2013. She is at low risk for addiction, but is clearly dependent on opioid medication for chronic intractable pain. PHYSICAL EXAMINATION: She has pain across the low back. No leg pain is described at this time. She has limited range of motion of the spine in flexion, extension and rotation. The scars overlying her fusion (the majority of her pain does extend further laterally). IMPRESSION: Chronic low back pain, post-laminectomy with fusion. RECOMMENDATIONS: 1. Continue medications, OxyContin 15 mg b.i.d., oxycodone will be reduced in prescription to 5 mg twice a day for breakthrough, her current use which is a reduction of about 15 mg of oxycodone per day from our discussions in January. They will safeguard medications carefully and we discussed the pharmacokinetics of these drugs. PROCEDURE: Lumbar epidural injection L5-S1 under fluoroscopic guidance. PROCEDURE: She was taken to fluoroscopic suite, placed prone, skin prepped with [address] [address] PAIN MANAGEMENT CONSULTATION Name: ANN CHEN Room #: REG CL Tamiko#: [id number] Admission: 06/17/18 Attend Phys: Ming Arnett MD Discharge: Date of : 41 Report #: [id number] ChloraPrep. Skin anesthetized over L5-S1 between her hardware. A 20-gauge Tuohy epidural needle advanced first attempt in the epidural space with loss of resistance technique. There was no blood or CSF aspirated. 1 mL of Omnipaque injected. Good spread of dye observed into the epidural space followed by 3 mL of 0.5% lidocaine mixed with 80 mg of triamcinolone. She tolerated the procedure well and was observed for 45 minutes and discharged. Followup visit is planned in the pain clinic in 1 month to 2 months. By: [id number] Ming Arnett MD /nt
[2018-06-17 10:46] VITALS: BP 140/63
--- NOTE | 2018-06-17 11:09 | NUR ---
Pain Clinic Assessment: 1. History of Osteoarthritis: NO History of Rheumatoid Arthritis: BACK 2. Height: 5 ft. 3 in. 160.0 cm. Weight: 120.2 lb. oz. 54.522 kg. Patient's BMI: 21.3 3. Vital Signs: BP: 140/63 Pulse: 72 Resp: 14 Temp: 02 Sat: 100 ECG Mon: 4. Pain Intensity: 6 5. Fall Risk: Dizziness: N Needs help standing or walking: N Fallen in the last 3 months: N Fall risk comments: 6. Patient on Blood Thinner: None 7. History of Hypertension: Y 8. Opioid Therapy greater than 6 weeks: Y Opiate Contract Signed: 11/12/16 9. Risk Assessment Tool Provided: 10. Functional Assessment Tool: 11. Recreational Drug Use: Never Drug Type: Tobacco Use: Never Smoker Tobacco Type: Amount or Packs/day: How Many Years: Alcohol Use: No Frequency: Quant:
== END | disposition home or self-care (01) ==
LOC: PAIN 06:55
DX: M51.16 Intervertebral disc disorders with radiculopathy, lumbar region (principal); G89.29 Other chronic pain; M19.90 Unspecified osteoarthritis, unspecified site; I10 Essential (primary) hypertension; Z79.891 Long term (current) use of opiate analgesic; Z98.1 Arthrodesis status; Z98.890 Other specified postprocedural states; Z79.899 Other long term (current) drug therapy; Z88.8 Allergy status to other drugs, medicaments and biological substances

== ENCOUNTER → 2018-07-12 | Outpatient (CLI) | payer OTHER, MEDICARE ==
[~2018-07-12] VITALS: Ht 160 cm; Wt 55.2 kg
[~2018-07-12] MED LIST changes: +MYSOLINE50 MG PO
--- NOTE | ~2018-07-12 | HPC ---
[facility] [address] [place] [address] PAIN MANAGEMENT CONSULTATION Name: ANN CHEN Room #: REG KYAW Morrison#: [id number] Admission: 07/12/18 Attend Phys: Ming Arnett MD Discharge: Date of : 41 Report #: [id number] THIS REPORT FOR: //name// CC: GARY Arnett DATE OF SERVICE: 07/12/2018 CHIEF COMPLAINT: Followup visit for post-laminectomy syndrome with radiculopathy. HISTORY OF PRESENT ILLNESS: The patient is here today for a repeat epidural injection. Her last injection was performed at the level of L4-L5. Position looks excellent in between the pedicle screws. Her relief was limited. We discussed further options. I think she is a candidate for an intrathecal pump. Much of her pain is across her low back, but she also has pain that involves the nerves, resulting in radicular symptoms and neurogenic claudication. I have also spoken with her about spinal cord stimulator, so this is the second time we have discussed advanced therapies. Reviewing options including medication management, we have decided that we will try another epidural injection this time higher. She may have much of her pain that is generated at the level where she has some instability above the level of her fusion. She describes her pain as a 5/10 into her low back, both legs, left worse than right. Pain is increased by prolonged standing and walking, but she gets some relief from the sitting position. This is alleviated by her medication, sitting and ice. PHYSICAL EXAMINATION: GENERAL: Pleasant lady. VITAL SIGNS: Blood pressure 131/68, heart rate is 86, BMI is 24.3. She is able to independently move from standing position; it is hard for her to stand up straight. She has pain with forward flexion and extension limited movement of the lower lumbar segment due to her fusion. She has tenderness along the scars as well as along the sacroiliac joint. Straight leg raising is positive for discomfort. Pain is similar on both sides, perhaps a bit worse today on the left. Sensation is intact. IMPRESSION: Post-laminectomy syndrome with radiculopathy. PLAN: 1. We will continue with medication management. She remains on oxycodone 5 mg twice a day and oxycodone extended release 15 mg b.i.d. for a total of 60 morphine [place] [address] PAIN MANAGEMENT CONSULTATION Name: ANN CHEN Room #: REG CLI Pranav#: [id number] Admission: 07/12/18 Attend Phys: Ming Arnett MD Discharge: Date of : 41 Report #: [id number] 2. Repeat epidural injection today, L3-L4 under fluoroscopic guidance. PROCEDURE: She was taken to fluoroscopic suite for treatment. She was placed prone, skin prepped with ChloraPrep. C-arm was positioned to identify midline. A 20-gauge Tuohy epidural needle was then advanced under local anesthesia and into the epidural space in first attempt with loss of resistance technique. There was no blood or CSF aspirated. 1 mL of Omnipaque was injected and spread of dye observed into the epidural space followed by 3 mL of 0.5% lidocaine mixed with 80 mg triamcinolone. She tolerated the procedure well. Pain score was reduced to 3 in recovery room and a followup visit is scheduled in 1 month. By: [id number] Ming Arnett MD /nt
[2018-07-12 14:36] VITALS: BP 131/68
--- NOTE | 2018-07-12 14:39 | NUR ---
Pain Clinic Assessment: 1. History of Osteoarthritis: NO History of Rheumatoid Arthritis: BACK 2. Height: 5 ft. 3 in. 160.0 cm. Weight: 121.8 lb. oz. 55.248 kg. Patient's BMI: 21.6 3. Vital Signs: BP: 131/68 Pulse: 86 Resp: 16 Temp: 02 Sat: 95 ECG Mon: 4. Pain Intensity: 5 5. Fall Risk: Dizziness: N Needs help standing or walking: N Fallen in the last 3 months: N Fall risk comments: 6. Patient on Blood Thinner: None 7. History of Hypertension: Y 8. Opioid Therapy greater than 6 weeks: Y Opiate Contract Signed: 11/12/16 9. Risk Assessment Tool Provided: 10. Functional Assessment Tool: 11. Recreational Drug Use: Never Drug Type: Tobacco Use: Never Smoker Tobacco Type: Amount or Packs/day: How Many Years: Alcohol Use: No Frequency: Quant:
== END | disposition home or self-care (01) ==
LOC: PAIN 07:18
DX: M54.16 Radiculopathy, lumbar region (principal); M96.1 Postlaminectomy syndrome, not elsewhere classified; D64.9 Anemia, unspecified; Z79.899 Other long term (current) drug therapy; Z88.8 Allergy status to other drugs, medicaments and biological substances

== ENCOUNTER → 2018-08-16 | Outpatient (CLI) | payer OTHER, MEDICARE ==
[~2018-08-16] VITALS: Ht 160 cm; Wt 55.2 kg
[~2018-08-16] MED LIST changes: +AMITRIPTYLINE H10 M3 PO; +PROTONIX40 M1 PO
[2018-08-16 13:38] VITALS: BP 124/67
--- NOTE | 2018-08-16 13:39 | NUR ---
Document wound assessment on appropriate Wound Pressure, Monitor intervention!
--- NOTE | 2018-08-16 13:39 | NUR ---
Pain Clinic Assessment: 1. History of Osteoarthritis: NO History of Rheumatoid Arthritis: BACK 2. Height: 5 ft. 3 in. 160.0 cm. Weight: 121.6 lb. oz. 55.157 kg. Patient's BMI: 21.5 3. Vital Signs: BP: 124/67 Pulse: 63 Resp: 18 Temp: 02 Sat: 98 ECG Mon: 4. Pain Intensity: 5 5. Fall Risk: Dizziness: N Needs help standing or walking: N Fallen in the last 3 months: N Fall risk comments: 6. Patient on Blood Thinner: None 7. History of Hypertension: Y 8. Opioid Therapy greater than 6 weeks: Y Opiate Contract Signed: 11/12/16 9. Risk Assessment Tool Provided: 10. Functional Assessment Tool: 11. Recreational Drug Use: Never Drug Type: Tobacco Use: Never Smoker Tobacco Type: Amount or Packs/day: How Many Years: Alcohol Use: No Frequency: Quant:
--- NOTE | 2018-08-17 08:42 | HPC ---
[facility] [place] [address] PAIN MANAGEMENT CONSULTATION Name: ANN CHEN Room #: REG KYAW Morrison#: [id number] Admission: 08/16/18 ������������������ Attend Phys: Maryam Palmer Discharge: ������������������ Date of : 41 Report #: [id number] THIS REPORT FOR: //name// CC: Maryam Jimenes DATE OF SERVICE: 08/16/2018 CHIEF COMPLAINT: Post-laminectomy syndrome with radiculopathy. HISTORY OF PRESENT ILLNESS: The patient returns to the pain clinic today for refill of her medications for her chronic ongoing radiculopathy. She tells me that she has been in the Emergency Room three times in the last week for a urinary tract infection and is currently on Macrobid. She also has been having ongoing chronic headaches since June and has had ongoing nausea. She was started on some new medications of Elavil and Nexium to see if this is helpful in relieving some of these symptoms. The tells me that she did have home health therapy from March to July and that her pain has changed in the past 6 months. Her pain score today is 5/10 mostly located in her lower back, hips and left leg. She has worst pain when walking and standing, but now also does have some pain when she is seated, though at times sitting will make her pain seem better and relieve some of the symptoms. They were wondering about when the spinal cord stimulator trial could be scheduled. The also says that the oxycodone 5 mg 2 times a day is not controlling the patient's pain. She has been taking her long-acting 3 times a day, but occasionally needs more breakthrough pain medicine and was wondering if we are able to increase that while we are waiting for her spinal cord stimulator trial. ALLERGIES: CODEINE AND CIMZIA. CURRENT MEDICATIONS: Protonix 40 mg daily, atenolol 50 mg daily, amitriptyline 10 mg at bedtime, primidone 50 mg at bedtime, OxyContin 15 mg twice a day, trazodone 50 mg at bedtime, Prolia subQ, Zofran as needed, Benefiber twice a day, MiraLax as needed, Caltrate plus vitamin D twice a day, gabapentin 100 mg at 4:00 p.m., amlodipine/olmesartan 10/20 daily and vitamin D3 1000 units daily. PQRS: 1. 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 She denies rheumatoid arthritis. 2. Height 5 feet 3 inches, weight is 121. BMI is 21.5. Vital signs: 124/67, pulse is 63, respirations 18 and oxygen sat is 98. 3. Pain score is 5/10. 4. The patient denies dizziness, does not need help walking or standing. She has not fallen in the last 3 months. 5. The patient is not on any blood thinners. She does have a history of [address] [address] PAIN MANAGEMENT CONSULTATION Name: ANN CHEN Room #: REG KYAW Morrison#: [id number] Admission: 08/16/18 ������������������ Attend Phys: Maryam Palmer Discharge: ������������������ Date of : 41 Report #: [id number] hypertension. 6. Opiate therapy is greater than 6 weeks. Therefore, an opioid signed contract is on the chart. Her risk assessment tool is low. Her functional assessment is 20/70. 7. Recreational drug use, she denies. She does not smoke and does not drink alcohol. We did check the prescription monitoring system. The patient is filling appropriately from her medications in a timely fashion. Spouse tells me that they safeguard all of her medications. PHYSICAL EXAMINATION: GENERAL: This is a well-developed, well-nourished female that appears her stated age. She is alert and orientated. At times, her affect is flat, but she is pleasant. HEENT: Normocephalic and atraumatic. Extraocular eye muscles are intact. Mucous membranes are moist. Her hearing is adequate. NECK: Without JVD or adenopathy. MUSCULOSKELETAL: She moves independently from sitting to standing though it is hard to stand up completely straight. She does walk with an antalgic gait. She has limited range of motion in her spine in flexion and extension. The patient does complain of some tenderness from her recent urinary tract infection. ASSESSMENT: 1. Post-laminectomy syndrome with radiculopathy. 2. Chronic low back pain. 3. History of spondylosis and lumbar fusion at L5-S1. 4. Polypharmacy and opioid management under terms of written opioid agreement. We reviewed the fact that opiate medications are being used to provide analgesia adequate to support activities of daily living, not attempting to achieve a specific pain score on the 0-10 Visual Analog Scale. The current opiate medications are providing sufficient analgesia to allow the patient to participate in activities of daily living. The patient is not exhibiting any aberrant behavior suggestive of drug diversion. The patient is not having any adverse reactions to medications. The patient is not suffering from daytime somnolence or mental acuity changes. The patient is managing opiate-induced constipation with appropriate basc-jau-rtnpsaa agents and dietary considerations. The patient was counseled on concern for caution with operating a motor vehicle while using opiate medications. A physical exam was performed and the patient's functional status was evaluated. All patients with back pain were advised against the bed rest greater than 4 days and were advised to return to normal activities. Pain score assessment was noted and the treatment plan was reviewed with the patient. All current medications, both prescribed and OTC were reviewed and reconciled on the electronic medical record. Tobacco screening was accomplished and smoking cessation was advised when indicated. BMI was noted and diet/exercise [address] [address] PAIN MANAGEMENT CONSULTATION Name: ANN CHEN Room #: REG CLNaz Morrison#: [id number] Admission: 08/16/18 ������������������ Attend Phys: Maryam Palmer Discharge: ������������������ Date of : 41 Report #: [id number] modification was recommended for all patients following outside normal parameters. I reviewed with the patient today their responsibilities to safeguard prescription medications, reviewed their responsibility to utilize medications only as prescribed by the physician. They are to seek and receive pain medications only from 1 physician group ( [facility]). They are to use 1 pharmacy and keep the clinic informed if they change pharmacies. Their responsibilities include making followup visits in a timely fashion and to avoid abrupt discontinuation of medication usage. Their responsibilities further include bringing their medications (bottles from the pharmacy with residual pills) to the visit for possible confirmation of pill counts and the patient understands it is their responsibility to submit to random drug screens to ensure both that the medications prescribed are present, and that no other controlled substances are present. All prescriptions provided today were generated electronically. PLAN: 1. We discussed treatment options with the patient and family today. She is currently on an antibiotic for a recent urinary tract infection. I explained to both of them that she will need to be cleared of urinary infection, any signs of infection prior to having her spinal cord stimulator trial though we cannot risk the patient having the infection while that is in place. I discussed this with Dr. Arnett and he reaffirmed that the patient will need to be off antibiotics for at least 7 days and have a clear urine culture prior to scheduling her spinal cord stimulator. The spouse verbalizes understanding and says they have an appointment with her primary doctor this Thursday and he will discuss this with him and discuss the dates needed for following up urine specimen. They were instructed to have the office call us with the results of the specimen once it has been collected. 2. The family member and the patient tell me that the patient is having increased pain even when sitting down now and was wondering if she was able to increase her oxycodone 5 mg from two tablets up. In the past, the patient had been on as many as 5 tablets a day. I explained to them that per the CDC guidelines, we are trying to decrease both medicines to the lowest most effective dose. It was decided that we would increase them to three breakthrough tablets a day, quantity of 90. They agree that they thought that this will be beneficial in helping her be more active. Scripts given today for oxycodone 5 mg, #90 tablets for today, 4-week and 8-week. Scripts also given for her OxyContin 15 mg b.i.d., #60 for the 4-week, 8-week and today doses. They were reminded that once we have the spinal cord stimulator and if it was helpful, then we would decrease her medicines in the future. 3. The family will call us or have the office of her primary physician call us once the urine culture is negative and at that time, we will schedule her for a spinal cord stimulator. Otherwise, we will see her in three months for her [facility] [address] [place] [address] PAIN MANAGEMENT CONSULTATION Name: ANN CHEN Room #: REG KYAW Morrison#: [id number] Admission: 08/16/18 ������������������ Attend Phys: Maryam Palmer Discharge: ������������������ Date of : 41 Report #: [id number] medication management. 4. The patient was seen with Dr. Arnett and collaborated care. ��������������������������������������������� <ELECTRONICALLY SIGNED> ���������������������������������������� By: Maryam Palmer ��������������������������������������������� 08/17/18 0842 1521 0024 Maryam Palmer /nt
== END ==
LOC: PAIN 07:06
DX: M47.27 Other spondylosis with radiculopathy, lumbosacral region (principal); M43.27 Fusion of spine, lumbosacral region; Z79.891 Long term (current) use of opiate analgesic; Z79.899 Other long term (current) drug therapy

== ENCOUNTER → 2018-11-22 | Outpatient (CLI) | payer OTHER, MEDICARE ==
[~2018-11-22] VITALS: Ht 160 cm; Wt 55.4 kg
[~2018-11-22] MED LIST changes: +SUBOXONE 4 MG-1 EACH SUBLING
[2018-11-22 12:52] VITALS: BP 156/81
--- NOTE | 2018-11-22 13:02 | NUR ---
Pain Clinic Assessment: 1. History of Osteoarthritis: NO History of Rheumatoid Arthritis: BACK 2. Height: 5 ft. 3 in. 160.0 cm. Weight: 122.2 lb. oz. 55.429 kg. Patient's BMI: 21.7 3. Vital Signs: BP: 156/81 Pulse: 97 Resp: 16 Temp: 02 Sat: 100 ECG Mon: 4. Pain Intensity: 8 5. Fall Risk: Dizziness: N Needs help standing or walking: N Fallen in the last 3 months: N Fall risk comments: 6. Patient on Blood Thinner: None 7. History of Hypertension: Y 8. Opioid Therapy greater than 6 weeks: Y Opiate Contract Signed: 11/12/16 9. Risk Assessment Tool Provided: LOW 10. Functional Assessment Tool: 11. Recreational Drug Use: Never Drug Type: Tobacco Use: Never Smoker Tobacco Type: Amount or Packs/day: How Many Years: Alcohol Use: No Frequency: Quant:
--- NOTE | 2018-11-23 15:53 | HPC ---
[facility] [place] [address] PAIN MANAGEMENT CONSULTATION Name: ANN CHEN Room #: REG KYAW Morrison#: [id number] Admission: 11/22/18 ������������������ Attend Phys: Maryam Palmer Discharge: ������������������ Date of : 41 Report #: [id number] THIS REPORT FOR: //name// CC: Maryam Jimenes DATE OF SERVICE: 11/22/2018 CHIEF COMPLAINT: Post-laminectomy syndrome with lumbar radiculopathy. HISTORY OF PRESENT ILLNESS: The patient returns to the pain clinic today for refill of her medications. She tells me that she is having a headache as well as nausea every day along with her chronic low back pain. Her is here with her. He is very frustrated that she is not getting better and not getting answers that he thinks are helpful and why she is so nauseated and why she is having daily headaches. He tells me that she has been in bed most days until at least 1 or 2 in the afternoon due to her nausea and headache. He feels that this is no quality of life for her. She has had to postpone a vacation because of her illnesses and the doctors are telling him that all of her problems are related to her narcotic use. The patient sits quietly why her has voiced very much frustration at Dr. Arnett regarding why she has been so sick. The patient tells me that her pain is an 8/10 today, mostly with walking and standing, better with the medication and she is lying down. She tells me she averages two of her breakthrough pain medicines a day. She is not having problems with constipation that is not relieved from eoth-vpq-soepdvb medications. They are wondering when she will be able to have her spinal cord stimulator placed. This will be a Nevro device placed by Dr. Arnett. ALLERGIES: CODEINE AND CIMZIA. MEDICATIONS: Oxycodone 5 mg tablets twice a day, OxyContin 15 mg b.i.d., Protonix 40 mg daily, Desyrel 50 mg at bedtime, Prolia, Zofran, MiraLax, calcium, amlodipine, multivitamin, and vitamin D3. PQRS: She has a history of arthritis in her lumbar spine as well as rheumatoid arthritis. Height is 5 feet 3 inches, weight is 122, BMI is 21.7. Vital signs: Blood pressure 156/81, pulse is 97, respirations 16, oxygen sat is 100. Pain score is 8/10. Fall risk, denies dizziness. Does not need help walking or standing, has not fallen in the last 3 months. She is not on any blood thinners, but does take medicine for hypertension. Her opioid therapy is greater than 6 weeks; therefore, an opioid signed contract is on the chart. Her risk assessment tool is low. Functional assessment is 20/70. Recreational drug use, she denies. She is not a smoker and does not drink alcohol. [address] [address] PAIN MANAGEMENT CONSULTATION Name: ANN CHEN Room #: TIARA Morrison#: [id number] Admission: 11/22/18 ������������������ Attend Phys: Maryam Palmer Discharge: ������������������ Date of : 43 Report #: [id number] We did check the prescription monitoring system. The patient is filling appropriately for her medications. PHYSICAL EXAMINATION: GENERAL: This is alert and orientated 73-year-old female who appears her stated age. Placing her current pain score today at 8/10. HEENT: Normocephalic, atraumatic. Extraocular eye muscles are intact. Mucous membranes are moist. Does complain of a headache, nagging in nature. MUSCULOSKELETAL: Pain across her lower back. No leg pain is described at this time. She has limited range of motion in flexion, extension and rotation. Lower extremity strength judged to be 5/5 in all major muscle groups. ABDOMEN: The patient does complain of nausea today. IMPRESSION: 1. Post-laminectomy syndrome with lumbar radiculopathy. 2. Chronic low back pain. 3. Headache. 4. Nausea. 5. Opioid management under terms of written opioid agreement. We reviewed the fact that opiate medications are being used to provide analgesia adequate to support activities of daily living, not attempting to achieve a specific pain score on the 0-10 Visual Analog Scale. The current opiate medications are providing sufficient analgesia to allow the patient to participate in activities of daily living. The patient is not exhibiting any aberrant behavior suggestive of drug diversion. The patient is not having any adverse reactions to medications. The patient is not suffering from daytime somnolence or mental acuity changes. The patient is managing opiate-induced constipation with appropriate lrat-fdq-eahvglu agents and dietary considerations. The patient was counseled on concern for caution with operating a motor vehicle while using opiate medications. A physical exam was performed and the patient's functional status was evaluated. All patients with back pain were advised against the bed rest greater than 4 days and were advised to return to normal activities. Pain score assessment was noted and the treatment plan was reviewed with the patient. All current medications, both prescribed and OTC were reviewed and reconciled on the electronic medical record. Tobacco screening was accomplished and smoking cessation was advised when indicated. BMI was noted and diet/exercise modification was recommended for all patients following outside normal parameters. I reviewed with the patient today their responsibilities to safeguard prescription medications, reviewed their responsibility to utilize medications only as prescribed by the physician. They are to seek and receive pain medications only from 1 physician group ( [facility]). They are to use [address] [address] PAIN MANAGEMENT CONSULTATION Name: ANN CHEN Room #: REG KYAW Morrison#: [id number] Admission: 11/22/18 ������������������ Attend Phys: Maryam Palmer Discharge: ������������������ Date of : 43 Report #: [id number] pharmacy and keep the clinic informed if they change pharmacies. Their responsibilities include making followup visits in a timely fashion and to avoid abrupt discontinuation of medication usage. Their responsibilities further include bringing their medications (bottles from the pharmacy with residual pills) to the visit for possible confirmation of pill counts and the patient understands it is their responsibility to submit to random drug screens to ensure both that the medications prescribed are present, and that no other controlled substances are present. All prescriptions provided today were generated electronically. PLAN: 1. Dr. Arnett was present for most of the discussion today. We discussed treatment options with the patient today. We have set a date for her Nevro spinal cord stimulator trial. This will be her second trial with a spinal cord stimulator, but we are trying a Nevro device to see if that is helpful in helping her low back pain and then in the long run if it is beneficial, she will be able to reduce her opioid use. 2. The patient's informed Dr. Arnett that several doctors are saying that her headache and nausea and vomiting are all result of opioids, Dr Arnett did address to them that we could wean her off her medications and see if her symptoms improve. Narcotics are getting the brunt of a lot of peoples health issues lately as the scapegoat.Dr Arnett decided that we could try an opioid rotation. We will attempt Suboxone 08/30 films b.i.d. The patient may titrate up to 2 b.i.d. We explained lowest most effective dose and the titration schedule. The patient will try to fill this today to start this medication tomorrow. We think that this medication will be helpful since it does not enter the stomach and has reduced GI side effects and respitory depression. We will be able to reduce her medicines if the spinal cord stimulator trial is successful. 3. I did speak in length with the family regarding an upcoming move that they are having. They are trying to move into [facility] independent living. The is trying to decrease some of their possessions to move into this, but the patient has been too nauseated to go and see several of the apartments, so he hopes that by having the spinal cord stimulator or changing her medications, she may have less nausea and able to participate in some of this upcoming move. 4. The patient will return for her spinal cord stimulator trial on 12/13. The patient is seen today with Dr. Arnett who also collaborated care. ��������������������������������������������� <ELECTRONICALLY SIGNED> ���������������������������������������� By: Maryam Palmer ��������������������������������������������� 11/23/18 1553 [id number] [id number] Maryam Palmer /nolan
== END ==
LOC: PAIN 06:49
DX: M54.16 Radiculopathy, lumbar region (principal); M96.1 Postlaminectomy syndrome, not elsewhere classified; G89.29 Other chronic pain; R51 Headache; R11.0 Nausea; Z79.891 Long term (current) use of opiate analgesic; Z79.899 Other long term (current) drug therapy

== ENCOUNTER → 2018-12-13 | Outpatient (CLI) | payer OTHER, MEDICARE ==
[~2018-12-13] VITALS: Ht 160 cm; Wt 56.2 kg
[~2018-12-13] MED LIST changes: +OXYCODONE HCL E10 MG PO; +STOOL SOFTENER1 EAC2 PO; +TYLENOL EXTRA500 MG PO
--- NOTE | ~2018-12-13 | HPC ---
[facility] [place] [address] PAIN MANAGEMENT CONSULTATION Name: ANN CHEN Room #: REG KYAW Morrison#: [id number] Admission: 12/13/18 ������������������ Attend Phys: Ming Arnett MD Discharge: ������������������ Date of : 41 Report #: [id number] THIS REPORT FOR: //name// CC: GARY Arnett DATE OF SERVICE: 12/13/2018 SURGICAL PROCEDURE NOTE DIAGNOSIS: Intractable low back pain, post-laminectomy with radiculopathy. PROCEDURE PERFORMED: 1. Implant of a temporary Nevro RF10 spinal cord stimulation leads. 2. Octad leads placed under fluoroscopic guidance. INDICATION FOR PROCEDURE: The patient has had longstanding low back pain with radiculopathy, which is well documented in his chart. She has failed one spinal cord stimulation trial. Her has been dogged in pursuing a second trial and has pushed for a trial with the Nevro device because of the high frequency stimulation. I have agreed to perform this procedure with much time spent on expectations and what we might hope to achieve with spinal cord stimulation. Multiple questions have been asked and answered, both in current and [id number]. They are ready to proceed. We have had some concern about opioid medications causing cognitive side effects. I transitioned her from oxycodone to Suboxone/naloxone in the form of Suboxone approximately 1 month ago. He does not feel that this has been helpful and would like to transition back to oxycodone. We discussed the reasoning for switching initially and why we would switch back. One of the goals of the spinal cord stimulation is to avoid opioid use. PROCEDURE: After informed consent, the patient was taken to the procedure suite where she was placed in the prone position. Prepped and draped in the usual surgical fashion. The C-arm was utilized to help facilitate placement of the lead. Skin was anesthetized on the right below the T12-L1 interspace and a 14-gauge Tuohy type epidural needle was advanced into the epidural space midline on the first attempt. I was unable to advance the lead pass the scar tissue located almost exactly at midline at approximately T12. After attempting several repositionings at that level, the needle was removed and I anesthetized the skin below the level of T12-T11. The needle was advanced in the epidural space above the scar tissue using loss of resistance technique. There was no blood on CSF aspirate. The lead was then able to be advanced to the top of T8 on AP projection. Skin was then anesthetized to the left of midline. A second needle advanced in the epidural space without difficulty using loss of [address] [address] PAIN MANAGEMENT CONSULTATION Name: ANN CHEN Room #: REG KYAW Morrison#: [id number] Admission: 12/13/18 ������������������ Attend Phys: Ming Arnett MD Discharge: ������������������ Date of : 41 Report #: [id number] resistance technique. No blood on CSF aspirate at that location. The second lead was advanced similarly without significant discomfort in the position of the tip of this lead resting at the top of T9, perhaps slightly higher in the lower portion of T8. This was felt to be in good position for use by Margie Sebastian, business banking representative from [employer] who was assisting the procedure. [place] were then removed and the leads were securely fastened to the skin using Mastisol and Steri-Strips. Sterile dressing was applied over the entire area and a bulky dressing to protect the area was also applied after addressing the skin with Mastisol. Surgical drapes were removed. There was some tape reaction from the surgical drapes, but this was gradually improving as she waited in recovery room following the procedure. She tolerated the procedure well and there were no complications. In the recovery room, she was then seen by Sarabjit Sebastian who performed the initial stimulation patterns for her. Before discharge, I wrote prescriptions for OxyContin 10 mg b.i.d. with oxycodone 5 mg for breakthrough 1-2 tablets q.i.d. Mr. Chen provides medication for his and will closely observe this transition back from buprenorphine to oxycodone. This will be a lower dose since she was on prior to her initial transfer to buprenorphine. We will keep in contact with the patient by phone and she has a followup visit scheduled for 1 week. I have told him by , we may have a good idea that the stimulator is working and if it is established that she is a good candidate to proceed with permanent implant that we would remove the leads on due to risk of infection the longer the leads are left in place. ��������������������������������������������� ���������������������������������������� By: ��������������������������������������������� 1704 [id number] Ming Arnett MD /nt
[2018-12-13 13:14] VITALS: BP 126/66
--- NOTE | 2018-12-13 13:17 | NUR ---
Pain Clinic Assessment: 1. History of Osteoarthritis: NO History of Rheumatoid Arthritis: BACK 2. Height: 5 ft. 3 in. 160.0 cm. Weight: 124.0 lb. oz. 56.246 kg. Patient's BMI: 22.0 3. Vital Signs: BP: 126/66 Pulse: 87 Resp: 16 Temp: 02 Sat: 100 ECG Mon: 4. Pain Intensity: 8 5. Fall Risk: Dizziness: N Needs help standing or walking: N Fallen in the last 3 months: N Fall risk comments: 6. Patient on Blood Thinner: None 7. History of Hypertension: Y 8. Opioid Therapy greater than 6 weeks: Y Opiate Contract Signed: 11/12/16 9. Risk Assessment Tool Provided: LOW 10. Functional Assessment Tool: 11. Recreational Drug Use: Never Drug Type: Tobacco Use: Never Smoker Tobacco Type: Amount or Packs/day: How Many Years: Alcohol Use: No Frequency: Quant:
== END | disposition home or self-care (01) ==
LOC: PAIN 10:38
DX: Z46.2 Encounter for fitting and adjustment of other devices related to nervous system and special senses (principal); M54.16 Radiculopathy, lumbar region; M96.1 Postlaminectomy syndrome, not elsewhere classified; G89.29 Other chronic pain; D64.9 Anemia, unspecified; Z98.890 Other specified postprocedural states; Z88.8 Allergy status to other drugs, medicaments and biological substances; Z79.899 Other long term (current) drug therapy; Z88.6 Allergy status to analgesic agent; Z87.891 Personal history of nicotine dependence

== ENCOUNTER → 2018-12-20 | Outpatient (CLI) | payer OTHER, MEDICARE ==
[~2018-12-20] VITALS: Ht 160 cm; Wt 55.5 kg
[~2018-12-20] MED LIST changes: +CYMBALTA30 MG PO
--- NOTE | ~2018-12-20 | HPC ---
[facility] [place] [address] PAIN MANAGEMENT CONSULTATION Name: ANN CHEN Room #: REG KYAW Morrison#: [id number] Admission: 12/20/18 ������������������ Attend Phys: Ming Arnett MD Discharge: ������������������ Date of : 41 Report #: [id number] THIS REPORT FOR: //name// CC: Dr. Mishra, [facility] Neurosurgery BEATA Arnett HISTORY OF PRESENT ILLNESS: The patient returns to pain clinic today and unfortunately her 7-day trial has been unhelpful. Despite the valiant efforts of her team from [facility], she was unable to obtain satisfactory relief with any of their efforts. This is her second failed spinal cord stimulator trial. It will not be repeated. A 25-minute consultation then ensued. Mr. Chen is interested in further next steps. I reviewed with him once again the patient's MRI, which shows significant changes consistent with spinal stenosis at multiple levels. She does not experience a great deal of pain into her legs, nor does she have significant weakness or numbness. Most of her pain is across her lumbosacral segment. The pain in this region is intense and debilitating. She does receive some benefit from medication. We have tried to rotate her from oxycodone to buprenorphine due to reported cognitive side effects. This was unsuccessful and resulted in worsening of pain and function. We will return to OxyContin with oxycodone breakthrough that she was previously taking with some flexibility depending on day of activity. We have discussed the role of the medication in providing pain relief to improve daily function which it does modestly. We reviewed side effects, which include cognitive side effects, constipation and additional effects on the neuroendocrine system. For the moment, we have no better options for her. PQRS REVIEW: 1. Although she has spondylitic changes of the lumbar spine, there is no history of osteoarthritis. 2. She is 5 feet 3 inches with a BMI of 21.7. 3. Vital signs: Blood pressure 147/69, heart rate 82, respirations 14, O2 sat 99. 4. Pain intensity 4-5/10. 5. She is unsteady on her feet, but has not fallen within the last 3 months. I would consider her a fall risk. She needs to be very cautious. 6. She is on no blood thinners. 7. All medications including those provided through our clinic were reviewed and reconciled. She is on an antihypertensive medication and all oral medications other than pain medications are provided by Dr. Jimenes. 8. She has completed an opioid agreement signed in 2017. 9. She is considered at low risk by the opioid risk tool for addiction. 10. Functional score is 20/70 which actually is not bad compared to concerns [facility] [address] [place] [address] PAIN MANAGEMENT CONSULTATION Name: ANN CHEN Room #: REG KYAW Morrison#: [id number] Admission: 12/20/18 ������������������ Attend Phys: Ming Arnett MD Discharge: ������������������ Date of : 41 Report #: [id number] and complaints that we have had about her uncontrolled pain. 11. She does not use tobacco or alcohol. PHYSICAL EXAM: Vital signs as noted above. She is pleasant, has slight generalized tremor of the head and bilateral hands. She moves easily from sitting to standing position independently and walks with a slow but fairly steady gait. Examination of the spine reveals tenderness across the low back where she has had previous surgery, pain with forward flexion, extension, nnek-[id number]-[id number] rotation and tilt. Deep tendon reflexes are absent in knees and ankles. Straight leg raising is negative. Sensation is intact bilaterally with no sensory loss in lower extremities. She has mild generalized weakness of the lower extremities by exam, but no focal weakness. LABORATORY AND DIAGNOSTIC DATA: MRI was reviewed once again showing multilevel changes with an extruded fragment at L2-L3 caudal to the disk level causing right-sided central canal and recess stenosis at L2-L3. She does not have radicular features there. At L3-L4, there is central stenosis, also with bilateral foraminal stenosis. Similar findings at L4-L5. None of these areas causes significant neuropathic symptoms of the lower extremities, but perhaps could be the cause of her underlying back pain. IMPRESSION: 1. Chronic intractable low back pain, post-laminectomy syndrome with radiculopathy. Radiculopathy is mild. The spondylitic low back pain is severe. 2. Fusion of L5-S1. 3. 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 RECOMMENDATION: 1. Repeat MRI. 2. Consultation with Dr. Mishra and Dr. Green for options. 3. Renew medications under terms of written opioid agreement. 4. Remove spinal cord stimulator leads. Spinal cord stimulator was removed intact. There was no evidence of redness, swelling or infection. 5. Followup visit plans in 1 month. ��������������������������������������������� ���������������������������������������� By: ��������������������������������������������� 1617 0817 Ming Arnett MD /nt
[2018-12-20 11:30] VITALS: BP 147/69
--- NOTE | 2018-12-20 11:57 | NUR ---
Pain Clinic Assessment: 1. History of Osteoarthritis: NO History of Rheumatoid Arthritis: BACK 2. Height: 5 ft. 3 in. 160.0 cm. Weight: 122.4 lb. oz. 55.520 kg. Patient's BMI: 21.7 3. Vital Signs: BP: 147/69 Pulse: 82 Resp: 14 Temp: 02 Sat: 99 ECG Mon: 4. Pain Intensity: 4-5 5. Fall Risk: Dizziness: N Needs help standing or walking: N Fallen in the last 3 months: N Fall risk comments: 6. Patient on Blood Thinner: None 7. History of Hypertension: Y 8. Opioid Therapy greater than 6 weeks: Y Opiate Contract Signed: 11/12/16 9. Risk Assessment Tool Provided: LOW 10. Functional Assessment Tool: 11. Recreational Drug Use: Never Drug Type: Tobacco Use: Never Smoker Tobacco Type: Amount or Packs/day: How Many Years: Alcohol Use: No Frequency: Quant:
== END ==
LOC: PAIN 06:53
DX: M47.26 Other spondylosis with radiculopathy, lumbar region (principal); G89.4 Chronic pain syndrome; I10 Essential (primary) hypertension; Z79.891 Long term (current) use of opiate analgesic; Z79.899 Other long term (current) drug therapy

== ENCOUNTER → 2018-12-27 | Outpatient (CLI) | payer OTHER, MEDICARE | LOC: MRI 10:12 | DX: M48.062 Spinal stenosis, lumbar region with neurogenic claudication (principal); M51.26 Other intervertebral disc displacement, lumbar region; M41.86 Other forms of scoliosis, lumbar region; M43.27 Fusion of spine, lumbosacral region; M12.88 Other specific arthropathies, not elsewhere classified, other specified site; M25.78 Osteophyte, vertebrae ==

== ENCOUNTER → 2019-01-17 | Outpatient (CLI) | payer OTHER, MEDICARE ==
[~2019-01-17] VITALS: Ht 160 cm; Wt 54.9 kg
--- NOTE | ~2019-01-17 | HPC ---
[facility] [place] [address] PAIN MANAGEMENT CONSULTATION Name: ANN CHEN Room #: REG KYAW Morrison#: [id number] Admission: 01/17/19 Attend Phys: Ming Arnett MD Discharge: Date of : 41 Report #: [id number] THIS REPORT FOR: //name// CC: GARTH Arnett DATE OF SERVICE: 01/17/2019 CHIEF COMPLAINT: Followup visit for chronic intractable pain. HISTORY OF PRESENT ILLNESS: I am seeing patient after a phone call I placed to her . We received a cry for help letter to our office. There is no other way to describe it. He would agree with that. He has brought her back to the clinic today to discuss further measures to help her with her chronic pains. His letter describes headaches, but does not describe much in the way of pain related to her spine. I have recently repeated an MRI of her lumbar spine without contrast, which shows ongoing severe spinal stenosis. I reviewed the report with him in detail and it is on the medical record for review. She has ample reason for radiculopathy and as much as surgery is unwanted may be necessary option given her failure in treating by other interventional approaches including spinal cord stimulation. She has spinal stenosis at L4-L5 measuring 6 mm. There is neural foraminal stenosis at L3-L4. There is acquired spinal stenosis at 6 mm and a disk extrusion as well. There is neural foraminal stenosis, severe on the right and mild on the left at L4-L5. Severe right foraminal stenosis is noted as well as an extruded disk fragment, which is located along the lateral right aspect of the L3 vertebral body. CURRENT MEDICATIONS: Include OxyContin 15 mg twice a day. She has been very limited her use of oxycodone 5 mg for breakthrough. She has had some days where she does not use it at all. It is controlled by her who is watching her carefully. She was started on Cymbalta 30 mg, which she feels is helpful. We discussed this over the phone. An increase in dose may be of some value for both pain and depression. She remains on trazodone. All other medications were reviewed and reconciled from the electronic medical record. PQRS: 1. Positive for chronic spinal problems with spondylosis. She denies osteoarthritis. 2. BMI is 21.4. 3. Vital signs: Blood pressure 198/53, heart rate 111, respirations 14, O2 sat 97. 4. Pain intensity 9/10. [address] [address] PAIN MANAGEMENT CONSULTATION Name: ANN CHEN Room #: REG [facility] GeorgeDorcas#: [id number] Admission: 01/17/19 Attend Phys: Ming Arnett MD Discharge: Date of : 41 Report #: [id number] 5. She is a fall risk and needs help with standing. She complains of dizziness as well as headache. 6. The patient is on no blood thinners. 7. History of hypertension. 8. She is on an opioid agreement through our clinic signed in October. We watch over her medications carefully. 9. She has completed an opioid risk tools and considered at low risk for addiction. Her describes addiction in 2012, but this was a dependence on pain medication following surgery. She tapered off at one time. 10. She denies use of tobacco and alcohol. PHYSICAL EXAMINATION: VITAL SIGNS: As noted above. GENERAL: The patient complains of abdominal pain today. She was taken to a treatment bed and allowed to rest in the recumbent position. HEENT: Pupils are equal, round, reactive to light. EOMs are intact. CHEST: Clear. CARDIAC: Rhythm is regular and rapid. ABDOMEN: Soft and no organomegaly. She has mild tenderness in the right lower quadrant. She has had a previous appendectomy and hysterectomy. Bowel sounds are present. MUSCULOSKELETAL: Positive for diffuse pain across the low back and into the legs. IMPRESSION: 1. Chronic intractable pain, multiple pain generators including lumbar radiculopathy, post laminectomy. 2. Chronic headaches. 3. Chronic nausea. 4. Opioid management under terms of written opioid agreement. PLAN: We are going to taper her OxyContin from 15 mg twice a day, 03/15 and then 10/10 over the course of the next couple of weeks. Mr. Chen has organized tapering plan that he used previously when he tapered her opioids. We will see if this improves her nausea and headache. In order to supplement her pain medication, I have increased her Cymbalta from 30 to 60. This may be helpful in a stepwise fashion. A followup visit is scheduled in the pain clinic in 1 month. By: 1728 [id number] Ming Arnett MD /nt
[2019-01-17 13:16] VITALS: BP 136/66; BP 98/53
--- NOTE | 2019-01-17 13:39 | NUR ---
Pain Clinic Assessment: 1. History of Osteoarthritis: NO History of Rheumatoid Arthritis: BACK 2. Height: 5 ft. 3 in. 160.0 cm. Weight: 121.0 lb. oz. 54.885 kg. Patient's BMI: 21.4 3. Vital Signs: BP: 98/53 Pulse: 111 Resp: 14 Temp: 02 Sat: 97 ECG Mon: 4. Pain Intensity: 9 5. Fall Risk: Dizziness: Y Needs help standing or walking: Y Fallen in the last 3 months: N Fall risk comments: UNABLE TO ASSESS WILL NOT LEAVE PT ALONE 6. Patient on Blood Thinner: None 7. History of Hypertension: Y 8. Opioid Therapy greater than 6 weeks: Y Opiate Contract Signed: 11/12/16 9. Risk Assessment Tool Provided: LOW 10. Functional Assessment Tool: 11. Recreational Drug Use: Never Drug Type: Tobacco Use: Never Smoker Tobacco Type: Amount or Packs/day: How Many Years: Alcohol Use: No Frequency: Quant:
== END ==
LOC: PAIN 06:58
DX: M54.16 Radiculopathy, lumbar region (principal); R51 Headache; R11.0 Nausea; Z79.891 Long term (current) use of opiate analgesic

== ENCOUNTER → 2019-02-14 | Outpatient (CLI) | payer OTHER, MEDICARE ==
[~2019-02-14] VITALS: Ht 160 cm; Wt 54.9 kg
[2019-02-14 12:45] VITALS: BP 136/70
--- NOTE | 2019-02-14 12:58 | NUR ---
Pain Clinic Assessment: 1. History of Osteoarthritis: NO History of Rheumatoid Arthritis: BACK 2. Height: 5 ft. 3 in. 160.0 cm. Weight: 121.0 lb. oz. 54.885 kg. Patient's BMI: 21.4 3. Vital Signs: BP: 136/70 Pulse: 89 Resp: 16 Temp: 02 Sat: 98 ECG Mon: 4. Pain Intensity: 8-9 5. Fall Risk: Dizziness: Y Needs help standing or walking: N Fallen in the last 3 months: N Fall risk comments: UNABLE TO ASSESS WILL NOT LEAVE PT ALONE 6. Patient on Blood Thinner: None 7. History of Hypertension: Y 8. Opioid Therapy greater than 6 weeks: Y Opiate Contract Signed: 11/12/16 9. Risk Assessment Tool Provided: ZARINA 10. Functional Assessment Tool: 11. Recreational Drug Use: Never Drug Type: Tobacco Use: Never Smoker Tobacco Type: Amount or Packs/day: How Many Years: Alcohol Use: No Frequency: Quant:
--- NOTE | 2019-02-15 07:56 | HPC ---
[facility] [place] [address] PAIN MANAGEMENT CONSULTATION Name: ANN CHEN Room #: REG KYAW Morrison#: [id number] Admission: 02/14/19 ������������������ Attend Phys: Maryam Palmer Discharge: ������������������ Date of : 41 Report #: [id number] THIS REPORT FOR: //name// CC: Maryam Palmer Physician staff MADY KATHIE DATE OF SERVICE: 02/14/2019 CHIEF COMPLAINT: Chronic intractable pain. HISTORY OF PRESENT ILLNESS: This is a 73-year-old female who returns to the pain clinic today with her spouse to discuss treatment options in the changes we made at the last visit less than a month ago. The family was working with the patient to try and decrease her OxyContin to see if that would help with some of her nausea and vomiting as well as an ongoing headache and we were transitioning her up on her Cymbalta to see if that was also would be beneficial as well in treating her ongoing pain since that has value for pain as well as depression. The patient's has brought with him a procedural note several pages in length of how they did decrease her OxyContin according to Dr. Arnett's weaning parameters. The patient is currently taking 1 OxyContin of 10 mg every 36 hours. She is currently on Cymbalta 30 mg twice a day and trazodone before bedtime. She feels that she is having no significant increase in her pain with this change in her lower back. She continues to have a headache that has been unchanged. Her headache is most debilitating during the middle part of her day and she finds that she is unable to sleep at night the last few nights, otherwise, did not experience any significant side effects from decreasing her OxyContin. Today, they are here for guidance to find out what the next step is with her medication therapy and she reports they do have a new primary care doctor that they will be seen in March. CURRENT LIST OF MEDICATIONS: Amlodipine and benazepril 10/20 in the morning, Cymbalta 30 mg b.i.d., hydrocortisone 5 mg 3 in the morning and 1 in the afternoon, OxyContin 10 mg every 36 hours, oxycodone 5 mg 1-2 a day, Prolia 60 mg every 6 months, trazodone 50 mg at bedtime, multivitamin, vitamin D, calcium, MiraLax, stool softener and Tylenol Extra Strength. PQRS: 1. She has spinal stenosis with spondylosis. 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 2. Height is 5 feet 3 inches, weight is 121. BMI is 21. 3. Vital signs: 136/70, pulse is 89, respirations 16, oxygen sat is 98. 4. Pain score is 8-9. 5. Complains of dizziness, does not need help standing or walking, has not fallen in the last [address] [address] PAIN MANAGEMENT CONSULTATION Name: ANN CHEN Room #: TIARA Morrison#: [id number] Admission: 02/14/19 ������������������ Attend Phys: Maryam Palmer Discharge: ������������������ Date of : 41 Report #: [id number] 6. The patient is not on blood thinners, but does take medicine for hypertension. 7. Opioid therapy is greater than 6 weeks; therefore, an opioid signed contract is on the chart. Risk assessment is low. Functional assessment is 20/70. 8. Recreational drug use, she denies. She is not a smoker and does not drink alcohol. According to the prescription monitoring system, the patient is taking her medications appropriately and filling them on time. Her has brought back her medicines today. They are appropriate for the dates listed in her usage. PHYSICAL EXAMINATION: GENERAL: The patient is a 73-year-old female who appears her stated age, resting in bed today and covered. She is alert and orientating, answering most of questions, complaining of her pain score of 8/10-9/10. HEENT: Normocephalic, atraumatic. Extraocular eye muscles are intact. ABDOMEN: Soft, no organomegaly. She has tenderness in her right lower quadrant. MUSCULOSKELETAL: She has diffuse pain across her lumbar spine into her bilateral legs. Lower extremity strength judged to be 5/5 in all major muscle groups. IMPRESSION: 1. Chronic intractable pain, multiple pain generators including lumbar radiculopathy, post-laminectomy. 2. Chronic headaches. 3. Chronic nausea. 4. Opioid management in terms of written opioid agreement. We reviewed the fact that opiate medications are being used to provide analgesia adequate to support activities of daily living, not attempting to achieve a specific pain score on the 0-10 Visual Analog Scale. The current opiate medications are providing sufficient analgesia to allow the patient to participate in activities of daily living. The patient is not exhibiting any aberrant behavior suggestive of drug diversion. The patient is not having any adverse reactions to medications. The patient is not suffering from daytime somnolence or mental acuity changes. The patient is managing opiate-induced constipation with appropriate ekjr-zuf-mlnjwle agents and dietary considerations. The patient was counseled on concern for caution with operating a motor vehicle while using opiate medications. A physical exam was performed and the patient's functional status was evaluated. All patients with back pain were advised against the bed rest greater than 4 days and were advised to return to normal activities. Pain score assessment was noted and the treatment plan was reviewed with the patient. All current [facility] [address] [place] [address] PAIN MANAGEMENT CONSULTATION Name: ANN CHEN Room #: REG Naz Tomas.#: [id number] Admission: 02/14/19 ������������������ Attend Phys: Maryam Palmer Discharge: ������������������ Date of : 41 Report #: [id number] medications, both prescribed and OTC were reviewed and reconciled on the electronic medical record. Tobacco screening was accomplished and smoking cessation was advised when indicated. BMI was noted and diet/exercise modification was recommended for all patients following outside normal parameters. I reviewed with the patient today their responsibilities to safeguard prescription medications, reviewed their responsibility to utilize medications only as prescribed by the physician. They are to seek and receive pain medications only from 1 physician group ( [facility]). They are to use 1 pharmacy and keep the clinic informed if they change pharmacies. Their responsibilities include making followup visits in a timely fashion and to avoid abrupt discontinuation of medication usage. Their responsibilities further include bringing their medications (bottles from the pharmacy with residual pills) to the visit for possible confirmation of pill counts and the patient understands it is their responsibility to submit to random drug screens to ensure both that the medications prescribed are present, and that no other controlled substances are present. All prescriptions provided today were generated electronically. PLAN: 1. We discussed treatment options with the patient and her today. Consulted with Dr. Ming Arnett. We have decided to have the patient stop her OxyContin at 36 hours. Most of it has been out of her system due to the half-life of the medication before they would take another dose and it is reasonable, I think the patient will do fine stopping the OxyContin 10 mg and not suffer any side effects or withdrawal symptoms. 2. We encouraged the patient to take her Cymbalta 60 mg in the morning to see if that would be a better time a day for this patient. Sometimes she will suffer from serotonin issues. If they take it at night, this could cause her not to sleep well at night. The patient was instructed to try this for at least a week to see if this is beneficial and may not be the case, then she can take it at bedtime. We instructed them to find a time a day that works better for them. The patient instructed to stay at 60 mg of Cymbalta currently. No scripts given since they have medicines with refills presently. We may ultimately go up to 90 mg of this medicine. Again, it does affect the pain as well as depression. I think this would be beneficial for her in the long run once we get her dose stable with less nausea. 3. Okay the patient to increase her trazodone 100 mg at bedtime to see if this will aid in her sleep. Again, this is an antidepressant, but it does help with some sleep issues as well and she is on a very low dose currently. 4. She can continue her oxycodone 5 mg as needed for breakthrough additional pain. She does not need a script for that medicine since she has plenty in her bottle that she has brought with her today. 5. The patient made an appointment for 2 weeks. We will follow up with [address] [address] PAIN MANAGEMENT CONSULTATION Name: ANN CHEN Room #: REG KYAW Morrison#: [id number] Admission: 02/14/19 ������������������ Attend Phys: Maryam aPlmer Discharge: ������������������ Date of : 41 Report #: [id number] Ming Arnett to see how she is doing on this current plan of care. The patient and spouse both verbalized understanding. Again, care was collaborated with Dr. Ming Arnett. ��������������������������������������������� <ELECTRONICALLY SIGNED> ���������������������������������������� By: Maryam Palmer ��������������������������������������������� 02/15/19 [id number] Maryam Palmer /nt
== END ==
LOC: PAIN 06:57
DX: M54.16 Radiculopathy, lumbar region (principal); M96.1 Postlaminectomy syndrome, not elsewhere classified; R51 Headache; Z79.891 Long term (current) use of opiate analgesic; Z79.899 Other long term (current) drug therapy

== ENCOUNTER → 2019-03-03 | Outpatient (CLI) | payer OTHER, MEDICARE ==
[~2019-03-03] VITALS: Ht 160 cm; Wt 56.2 kg
[~2019-03-03] MED LIST changes: +BUPRENORPHIN-N1 EACH PO; +ZOFRAN ODT4 MG PO
[2019-03-03 12:56] VITALS: BP 125/67
--- NOTE | 2019-03-03 13:17 | NUR ---
Pain Clinic Assessment: 1. History of Osteoarthritis: NO History of Rheumatoid Arthritis: * YES. 2. Height: 5 ft. 3 in. 160.0 cm. Weight: 123.8 lb. oz. 56.155 kg. Patient's BMI: 21.9 3. Vital Signs: BP: 125/67 Pulse: 91 Resp: 14 Temp: 02 Sat: 100 ECG Mon: 4. Pain Intensity: 3 AT REST, OFTEN 9. 5. Fall Risk: Dizziness: Y Needs help standing or walking: N Fallen in the last 3 months: N Fall risk comments: UNABLE TO ASSESS WILL NOT LEAVE PT ALONE 6. Patient on Blood Thinner: None 7. History of Hypertension: Y 8. Opioid Therapy greater than 6 weeks: Y Opiate Contract Signed: 11/12/16 9. Risk Assessment Tool Provided: ZARINA 10. Functional Assessment Tool: 11. Recreational Drug Use: Never Drug Type: Tobacco Use: Never Smoker Tobacco Type: Amount or Packs/day: How Many Years: Alcohol Use: No Frequency: Quant:
--- NOTE | 2019-03-10 16:52 | HPC ---
[facility] [place] [address] [place] [address] PAIN MANAGEMENT CONSULTATION Name: ANN CHEN Room #: REG KYAW Tomas.#: [id number] Admission: 03/03/19 Attend Phys: Ming Arnett MD Discharge: Date of : 41 Report #: [id number] THIS REPORT FOR: //name// CC: GARTH Rivera DO Physician staff Padmini Alvarez DO Ming Cervantes M.D. DATE OF SERVICE: 03/03/2019 Followup visit for chronic pain. The patient returns today with her . Primary complaint today is the ongoing frontal headaches. She reports that her headaches are constant, generally worse in the morning. They occur across the front of her forehead and also mildly in the occipital region. They are constant and daily. Pain intensity is 3 at rest, often 9/10. She did not complain of back pain or leg pain whatsoever today during her visit. I spoke with her primary care physician, Dr. Rivera. Her has shopped widely for a physician who can help reverse her course and to provide better management of symptoms. I have been providing her with Cymbalta, which has shown good benefit in helping her reduce her opioid requirements. She is currently using no more than 2 tablets twice a day of the 5 mg strength and on some days, she is able to use much lower doses. PQRS: 1. No history of osteoarthritis, but reports a history of rheumatoid arthritis. 2. BMI is 21.9 and stable. 3. Vital signs: Blood pressure 125/67, heart rate 91, respirations 14, O2 sat 100. 4. Pain intensity 3. 5. She is a fall risk due to dizziness. 6. She is on no blood thinning medications. 7. She has a history of hypertension. 8. She has been on an opioid agreement through our clinic since 10/2016. 9. Risk assessment tool provided and she scores low for potential addiction. 10. Functional assessment score is 20/70, which is an improvement over prior visits. 11. Denies use of tobacco or alcohol. [facility] [address] [place] [address] PAIN MANAGEMENT CONSULTATION Name: ANN CHEN Room #: REG [facility] [id number] Admission: 03/03/19 Attend Phys: Ming Arnett MD Discharge: Date of : 41 Report #: [id number] PHYSICAL EXAMINATION: VITAL SIGNS: As noted above. GENERAL: She is pleasant, alert and oriented. She has a mild tremor of the right upper extremity. Some tremor is noted in the left as well, but the right seems more predominant. HEAD: She has tenderness throughout the temporal and frontal region in the forehead. Tenderness also in the occiput. CHEST: Clear. CARDIAC: Rhythm is regular. IMPRESSION: 1. Chronic intractable back pain with multiple pain generators; chronic daily headaches; lumbar radiculopathy, post laminectomy. 2. Management of medication including oxycodone 5 one to two tablets q.i.d. and Cymbalta. We have agreed and increased her Cymbalta dose to 60 mg b.i.d. at the maximum recommended by the PDR. I will take her off the medicine if she notices there is any increase in any side effects. Appointment was made for her to see Dr. Sonia Bocanegra for consideration of Botox therapy. <ELECTRONICALLY SIGNED> By: Ming Arnett MD 03/10/19 [id number] [id number] Ming Arnett MD /nt
== END ==
LOC: PAIN 06:55
DX: M54.16 Radiculopathy, lumbar region (principal); R51 Headache; M54.5 Low back pain; M96.1 Postlaminectomy syndrome, not elsewhere classified

== ENCOUNTER → 2019-03-28 | Outpatient (CLI) | payer OTHER, MEDICARE ==
[~2019-03-28] VITALS: Ht 160 cm; Wt 57.4 kg
--- NOTE | ~2019-03-28 | HPC ---
[facility] [place] [address] [place] [address] PAIN MANAGEMENT CONSULTATION Name: ANN CHEN Room #: REG LARRY Tamiko#: [id number] Admission: 03/28/19 Attend Phys: Ming Arnett MD Discharge: Date of : 41 Report #: [id number] THIS REPORT FOR: //name// CC: Fan Rivera DO Physician staff Ming Cervantes MD DATE OF SERVICE: 03/28/2019 Followup visit for chronic pain. The patient and Arpan were in the clinic today for about 25 minutes to discuss medication. Although she continues to complain of daily headaches and constipation, her other skeletal pains seem to be fairly well managed with the current combination of oxycodone 5 mg 2-4 tablets daily and 60 mg of Cymbalta b.i.d. PQRS REVIEW: 1. Positive for spondylosis. 2. BMI 22.4. 3. Vital signs: Blood pressure 138/69, heart rate 71, respirations 14, O2 sat 100%. 4. Pain intensity 6/10, fairly stable. 5. She has not fallen in the last 3 months. 6. The patient is not on blood thinning medications. 7. She has a history of hypertension. 8. Opioid therapy on a written opioid agreement. 9. Low risk assessment tool. 10. Functional assessment score is 20/70, in improvement. 11. She denies use of tobacco or alcohol. PHYSICAL EXAMINATION: GENERAL: She is soft spoken. Her speaks for her most of the time, although she appears alert and oriented. She can follow commands and answer questions. VITAL SIGNS: Blood pressure 138/69, heart rate 91, respirations 14, BMI is 22.4. NEUROLOGIC: She moves independently from sitting to standing position, ambulates with mild antalgic features. IMPRESSION: 1. Chronic intractable pain, multiple pain generators including chronic daily [facility] [address] [place] [address] PAIN MANAGEMENT CONSULTATION Name: ANN CHEN Room #: REG [id number] Admission: 03/28/19 Attend Phys: Ming Arnett MD Discharge: Date of : 41 Report #: [id number] headaches, lumbar radiculopathy, post laminectomy. 2. Management of high risk medications. Lengthy discussion today about a trial of buprenorphine. I have given her a prescription for Suboxone 12/31 and instructions on how to discontinue the oxycodone at her current MME of 30 and transition to the Suboxone at one tablet b.i.d. If this does not appear to be appropriate dose or it is too strong, then tablets may be broken in a half to 4/ b.i.d. We are available for phone calls. By: [id number] Ming Arnett MD /nt
[2019-03-28 10:31] VITALS: BP 138/69
--- NOTE | 2019-03-28 10:56 | NUR ---
Pain Clinic Assessment: 1. History of Osteoarthritis: NO History of Rheumatoid Arthritis: * YES. 2. Height: 5 ft. 3 in. 160.0 cm. Weight: 126.6 lb. oz. 57.425 kg. Patient's BMI: 22.4 3. Vital Signs: BP: 138/69 Pulse: 91 Resp: 14 Temp: 02 Sat: 100 ECG Mon: 4. Pain Intensity: 6 5. Fall Risk: Dizziness: N Needs help standing or walking: N Fallen in the last 3 months: N Fall risk comments: UNABLE TO ASSESS WILL NOT LEAVE PT ALONE 6. Patient on Blood Thinner: None 7. History of Hypertension: Y 8. Opioid Therapy greater than 6 weeks: Y Opiate Contract Signed: 11/12/16 9. Risk Assessment Tool Provided: LOW 10. Functional Assessment Tool: 11. Recreational Drug Use: Never Drug Type: Tobacco Use: Never Smoker Tobacco Type: Amount or Packs/day: How Many Years: Alcohol Use: No Frequency: Quant:
== END ==
LOC: PAIN 07:04
DX: G89.4 Chronic pain syndrome (principal); R51 Headache; K59.00 Constipation, unspecified; Z79.891 Long term (current) use of opiate analgesic; Z79.899 Other long term (current) drug therapy

== ENCOUNTER → 2019-04-25 | Outpatient (CLI) | payer OTHER, MEDICARE ==
[~2019-04-25] VITALS: Ht 160 cm; Wt 55.9 kg
[~2019-04-25] MED LIST changes: +ACETAMINOPHEN500 MG PO; +CORTEF5 MG PO; +PEPCID20 MG PO
[2019-04-25 10:46] VITALS: BP 136/72
== END ==
LOC: PAIN 06:43
DX: M54.5 Low back pain (principal); M96.1 Postlaminectomy syndrome, not elsewhere classified